=== PATIENT | female | born 1970 | race Caucasian/White ===

== ENCOUNTER 2016-10-12 17:40 | Emergency (ER) | payer BC ==
[~2016-10-12] VITALS: Ht 160 cm; Wt 89.3 kg
[~2016-10-12 17:40] MED LIST: GABA400C PO; LAMO150T32 PO; LEVOIUD INT UTER; PRENTAB PO; PRLSR20 PO
[2016-10-12 17:45] VITALS: TEMP 36.6; Ht 160 cm; Wt 89.3 kg
[2016-10-12] MEDS ORDERED: SODIUM CHLORIDE 0.9% 1000ML 1,000 ML IV STA (18:10)
[2016-10-12] MEDS ORDERED: ONDANSETRON 8 MG/54 ML D5W IV STA (18:14)
[2016-10-12] MEDS ORDERED: AMOXICILLIN/CLAVULANATE TAB 875 MG TAB PO ONE ×2 (18:15→20:30)
[2016-10-12] MEDS ORDERED: PRENTAB26 PO (18:35)
[2016-10-12] MEDS ORDERED: OMEP20CA9 PO (18:35)
[2016-10-12] MEDS ORDERED: NRN600 PO (18:35)
[2016-10-12 18:40] LABS: BASO % 0.1 %; BASO ABS # 0.01 K/uL (0-0.2); COMPLETE YES; EOS % 0.6 %; HEMATOCRIT 44.4 % (37-47); IG% 0.2 %; LYMPH % 11.6 %; LYMPH ABS # 1.24 K/uL (1.2-3.4); MEAN CELL VOLUME 98.9 fL (80-100); MEAN CORPUSCULAR HEMOGLOBIN 32.3 pg (25-34); MEAN CORPUSCULAR HGB CONC 32.7 g/dl (32-36); MEAN PLATELET VOLUME 10.3 fL (7.4-10.4); NEUT % 80.5 %; PLATELET COUNT 229 K/uL (130-400); RED BLOOD COUNT 4.49 M/uL (4.2-5.4); WHITE BLOOD COUNT 10.73 K/uL (4.8-10.8)
[2016-10-12 18:53] VITALS: O2SAT 98
[2016-10-12 18:57] LABS: ALT/SGPT 10 U/L (12-78); AST/SGOT 15 U/L (15-37); BLOOD UREA NITROGEN 8 mg/dl (7-18); BUN/CREATININE RATIO 9.5 (10-20); CALCIUM 8.6 mg/dl (8.5-10.1); CARBON DIOXIDE 29 mmol/L (21-32); CHLORIDE 110 mmol/L (98-107); CREATININE 0.88 mg/dl (0.60-1.20); GLUCOSE 89 mg/dl (70-99); POTASSIUM 3.8 mmol/L (3.5-5.1); SODIUM 144 mmol/L (136-145)
[2016-10-12 19:08] LABS: ALKALINE PHOSPHATASE 72 U/L (45-117)
--- NOTE | 2016-10-12 19:17 | DIAGNOSTIC IMAGING REPORT ---
RIGHT HAND 3 VIEWS CLINICAL HISTORY: Trauma. Dog bite injury. FINDINGS: 3 views of the right hand are obtained. No prior studies are available for comparison at the time of dictation. The skeletal structures are well mineralized. No fracture is seen. The joint spaces of the hand are well-maintained. A chronic avulsion injury of the ulnar styloid is suspected. A bone island is incidentally noted in the scaphoid. Mild soft tissue swelling is suggested on the ulnar aspect of the hand. Soft tissues swelling is also present around the wrist. No radiodense foreign body or subcutaneous gas is seen. IMPRESSION: Soft tissue swelling with no acute bony abnormality seen in the right hand. Electronically signed by: Mk Davila M.D. 10/12/2016 7:16 PM Dictated Date/Time: 10/12/2016 7:14 PM
[2016-10-12 20:16] LABS: PREG INTERNAL NEGATIVE QC NEG CLEAR BACKGROUND; PREG INTERNAL POSITIVE QC POS CONTROL LINE
[2016-10-12] MEDS ORDERED: ACETAMINOPHEN 500 MG TAB PO STA (20:18)
[2016-10-12] MEDS ORDERED: EMPTY 8 DRAM VIAL ONE (20:25)
[2016-10-12] MEDS ORDERED: AMOX875T PO (20:28)
[2016-10-12 20:44] VITALS: BP 143/75; PULSE 73; O2SAT 98
--- NOTE | 2016-10-13 01:24 | EMERGENCY ROOM VISIT NOTE ---
History Report prepared by Chema: Roxanne Albrecht Under the Supervision of: Dr. Jesse Molina M.D. First contact with patient: 18:06 Chief Complaint: BITE Stated Complaint: DOG BITE R HAND History of Present Illness The patient is a 46 year old female who presents to the Emergency Room with complaints of an episode of a dog bite to the right hand occurring 1 hour [employer]. The patient's two dogs were fighting and she reached down to try and separate them. Her dachshund bit her on her left thumb and then again on her right hand. Patient states that he was not intentionally trying to bite her, he was trying to bite the other dog. She has been unable to straighten the fingers of her right hand since the incident. She denies any pain. After the bite, the patient became nauseated, diaphoretic, lightheaded and passed out. She denies any injury occurring when she passed out. Her tetanus is up to date. The dogs are up to date on all of their vaccinations as well. The patient rates her pain as a 7/10 in severity. Pt denies headache, fevers, chills, neck pain, chest pain, breathing difficulties, vomiting, abdominal pain, back pain, melena, hematochezia, urinary symptoms, numbness, lymphadenopathy, rash, or other complaints. Source of History: patient Onset: 1 hour [employer] Position: hand (right) Symptom Intensity: 7/10 Timing: other (episode) Modifying Factors (Worsening): movement (of right hand) Associated Symptoms: + LOC, + diaphoresis, + nausea Review of Systems See HPI for pertinent positives and negatives. A total of ten systems were reviewed and were otherwise negative. Past Medical & Surgical Medical Problems: (1) Acute bronchitis, unspecified (2) (3) Endometriosis (4) Esophageal reflux (5) Tonsillectomy (6) Unspecified asthma (7) Urinary tract infection Family History Cardiovascular disease Kidney disease Social History Smoking Status: Never Smoker Marital Status: Housing Status: lives with family Occupation Status: employed Current/Historical Medications Scheduled Amoxicillin & Pot Clavulanate (Augmentin 875-125 mg), 875 MG PO BID Gabapentin (Gabapentin), 600 MG PO TID Lamotrigine (Lamictal), 150 MG PO BID Levonorgestrel (Iud) (Mirena), 20 MCG INT UTER UD Multivit/Min/Iron/Fol Ac/Pren ( Vitamin), 1 TAB PO DAILY Omeprazole (Prilosec), 20 MG PO BID Allergies Coded Allergies: Doxycycline (Verified Allergy, Severe, HIVES, 10/02/16) Telithromycin (Verified Allergy, Severe, HIVES, 10/02/16) Adhesives (Verified Allergy, Intermediate, SKIN WELTS, 10/02/16) Physical Exam Vital Signs Date Time Temp Pulse Resp B/P (MAP) Pulse Ox O2 Delivery O2 Flow Rate FiO2 10/12/16 20:44 73 18 143/75 98 10/12/16 19:19 78 18 141/80 100 Room Air 10/12/16 18:57 80 10/12/16 18:53 98 Room Air 10/12/16 18:42 80 111/73 94 140/86 81 141/80 10/12/16 17:45 36.6 93 18 122/69 99 Room Air Physical Exam GENERAL: Awake, alert, well-appearing, in no distress HENT: Normocephalic, atraumatic. Oropharynx unremarkable. EYES: Normal conjunctiva. Sclera non-icteric. NECK: Supple. No nuchal rigidity. FROM. No JVD. RESPIRATORY: Clear to auscultation. CARDIAC: Regular rate, normal rhythm. Extremities warm and well perfused. Pulses equal. ABDOMEN: Soft, non-distended. No tenderness to palpation. No rebound or guarding. No masses. RECTAL: Deferred. MUSCULOSKELETAL: Chest examination reveals no tenderness. No joint edema. UPPER EXTREMITIES: Small puncture wound to the hypothenar eminence on the lateral aspect of the right hand. Puncture wound between the 3rd and 4th metacarpals on the right hand. Small abrasion on the dorsal aspect of the left thumb. LOWER EXTREMITIES: Calves are equal size bilaterally and non-tender. No edema. No discoloration. NEURO: Normal sensorium. No sensory or motor deficits noted. SKIN: No rash or jaundice noted. Medical Decision & Procedures ER Provider Diagnostic Interpretation: Radiology results as stated below per my review and radiologist interpretation: RIGHT HAND 3 VIEWS CLINICAL HISTORY: Trauma. Dog bite injury. FINDINGS: 3 views of the right hand are obtained. No prior studies are available for comparison at the time of dictation. The skeletal structures are well mineralized. No fracture is seen. The joint spaces of the hand are well-maintained. A chronic avulsion injury of the ulnar styloid is suspected. A bone island is incidentally noted in the scaphoid. Mild soft tissue swelling is suggested on the ulnar aspect of the hand. Soft tissues swelling is also present around the wrist. No radiodense foreign body or subcutaneous gas is seen. IMPRESSION: Soft tissue swelling with no acute bony abnormality seen in the right hand. Electronically signed by: Mk Davila M.D. 10/12/2016 7:16 PM Dictated Date/Time: 10/12/2016 7:14 PM Laboratory Results 10/12/16 18:28 Red Blood Count 4.49, Mean Corpuscular Volume 98.9, Mean Corpuscular Hemoglobin 32.3, Mean Corpuscular Hemoglobin Concent 32.7, Mean Platelet Volume 10.3, Neutrophils (%) (Auto) 80.5, Lymphocytes (%) (Auto) 11.6, Monocytes (%) (Auto) 7.0, Eosinophils (%) (Auto) 0.6, Basophils (%) (Auto) 0.1, Neutrophils # (Auto) 8.65, Lymphocytes # (Auto) 1.24, Monocytes # (Auto) 0.75, Eosinophils # (Auto) 0.06, Basophils # (Auto) 0.01 10/12/16 18:28 Test 10/12/16 18:28 10/12/16 18:29 White Blood Count 10.73 K/uL (4.8-10.8) Red Blood Count 4.49 M/uL (4.2-5.4) Hemoglobin 14.5 g/dL (12.0-16.0) Hematocrit 44.4 % (37-47) Mean Corpuscular Volume 98.9 fL (80-100) Mean Corpuscular Hemoglobin 32.3 pg (25-34) Mean Corpuscular Hemoglobin Concent 32.7 g/dl (32-36) Platelet Count 229 K/uL (130-400) Mean Platelet Volume 10.3 fL (7.4-10.4) Neutrophils (%) (Auto) 80.5 % Lymphocytes (%) (Auto) 11.6 % Monocytes (%) (Auto) 7.0 % Eosinophils (%) (Auto) 0.6 % Basophils (%) (Auto) 0.1 % Neutrophils # (Auto) 8.65 K/uL (1.4-6.5) Lymphocytes # (Auto) 1.24 K/uL (1.2-3.4) Monocytes # (Auto) 0.75 K/uL (0.11-0.59) Eosinophils # (Auto) 0.06 K/uL (0-0.5) Basophils # (Auto) 0.01 K/uL (0-0.2) RDW Standard Deviation 46.9 fL (36.4-46.3) RDW Coefficient of Variation 12.9 % (11.5-14.5) Immature Granulocyte % (Auto) 0.2 % Immature Granulocyte # (Auto) 0.02 K/uL (0.00-0.02) Anion Gap 5.0 mmol/L (3-11) Est Creatinine Clear Calc Drug Dose 85.6 ml/min Estimated GFR () 92.0 Estimated GFR (Non- 79.3 BUN/Creatinine Ratio 9.5 (10-20) Calcium Level 8.6 mg/dl (8.5-10.1) Total Bilirubin 0.3 mg/dl (0.2-1) Direct Bilirubin < 0.1 mg/dl (0-0.2) Aspartate Amino Transf (AST/SGOT) 15 U/L (15-37) Alanine Aminotransferase (ALT/SGPT) 10 U/L (12-78) Alkaline Phosphatase 72 U/L (45-117) Total Protein 6.9 gm/dl (6.4-8.2) Albumin 3.8 gm/dl (3.4-5.0) Thyroid Stimulating Hormone (TSH) 2.510 uIu/ml (0.300-4.500) Human Chorionic Gonadotropin, Qual NEG (NEG) Bedside Glucose 88 mg/dl (70-90) Laboratory results reviewed by me. Medications Administered Medications (Trade) Dose Ordered Sig/Maulik Route Start Time Stop Time Status Last Admin Dose Admin Sodium Chloride 1,000 ml @ 999 mls/hr Q1H1M STAT IV 10/12/16 18:10 10/12/16 19:10 DC 10/12/16 18:10 999 MLS/HR Amoxicillin/ Clavulanate Potassium (Augmentin Tab) 875 mg ONE ONCE PO 10/12/16 18:15 10/12/16 18:16 DC 10/12/16 18:50 875 MG Amoxicillin/ Clavulanate Potassium (Augmentin Tab) 875 mg ONE ONCE PO 10/12/16 20:30 10/12/16 20:31 DC 10/12/16 20:28 875 MG Acetaminophen (Tylenol Tab) 1,000 mg NOW STAT PO 10/12/16 20:18 10/12/16 20:20 DC 10/12/16 20:28 1,000 MG ECG Indication: syncope Rate (beats per minute): 78 Rhythm: normal sinus Findings: no acute ischemic change, no ectopy ED Course 1805: The patient was evaluated in room B8. A complete history and physical exam was performed. 1809: NSS 1000 ml @ 999 mls/hr IV 1813: Zofran 8 mg IV 1814: Augmentin 875 mg PO 1919: I reassessed the patient and she is doing well. 2018: Tylenol tab 1000 mg PO 2023: I reassessed the patient at this time. She is feeling better and resting comfortably. I discussed the results and treatment plan with the patient. I answered all pertaining questions that she had. She expressed understanding and verbalized agreement. The patient will be discharged home. 2030: Augmentin Tab 875 mg PO Medical Decision Medication Reconciliation: I attest that I have personally reviewed the patient' s current medication list Blood pressure screening: Patient was found to have normal blood pressure on screening and does not require emergent follow-up. Prior records/ancillary studies reviewed. Triage Nursing notes reviewed and agree them. Additional history obtained from the family. The patient's history was concerning for syncope and a dog bite. Differential diagnosis: Etiologies such as vasovagal event, foreign body, neuropraxia, infection, hypoglycemia, electrolyte abnormalities, cardiac sources, intracerebral event, toxicologic, neurologic, as well as others were entertained. Physical examination: As above. The patient had 2 small puncture wounds. She was having difficulty with extension and flexion of her fingers. There is no obvious wounds or injury over the flexor tendon area. She also noted difficulty extending her index finger and there is no associated wound over the extensor tendon distribution. ER treatment provided: IV hydration with normal saline Oral Augmentin IV Zofran On reassessment the patient felt better. Diagnostics interpretation by me: ECG: Normal The labs revealed unremarkable CBC and chemistry panel Imaging studies: X-rays as above The patient had a vasovagal syncopal event. She suffered a dog bite from her own animal. She was treated with Augmentin and will be prophylaxed for the next 5 days. The patient declined analgesia. Conservative management was discussed. The patient and were in agreement. I gave my usual and customary discussion regarding this issue. By the evaluation outlined above emergent etiologies such as infection, hypoglycemia, electrolyte abnormalities, cardiac sources, intracerebral event, toxicologic, neurologic,as well as others were deemed relatively unlikely. The patient and were informed about the findings as listed above. All questions were answered and they were pleased with the treatment. Return instructions were outlined and the patient was discharged in stable condition. Outpatient prescription management: Augmentin Referral: The patient was referred back to her primary care physician for follow-up in 2 to 3 days for a recheck of the current condition. The chart was completed utilizing [employer] Speech voice recognition software. Grammatical errors, random word insertions, pronoun errors, and incomplete sentences are an occasional consequence of this system due to software limitations, ambient noise, and hardware issues. Any formal questions or concerns about the content, text, or information contained within the body of this dictation should be directly addressed to the physician for clarification. Impression Primary Impression: Dog bite Additional Impression: Vasovagal syncope Scribe Attestation The scribe's documentation has been prepared under my direction and personally reviewed by me in its entirety. I confirm that the note above accurately reflects all work, treatment, procedures, and medical decision making performed by me. Departure Information Dispostion Home / Self-Care Prescriptions Amoxicillin & Pot Clavulanate (Augmentin 875-125 mg) 1 Tab Tab 875 MG PO BID, #8 TAB Prov: Jesse Molina MD 10/12/16 Referrals Jayjay Rodriguez M.D. (PCP) Forms HOME CARE DOCUMENTATION FORM, IMPORTANT VISIT INFORMATION Patient Instructions ED Bite Dog, ED Syncope Vasovagal, My [facility] Additional Instructions Amoxicillin Clavulanate (Augmentin) 875mg: Take one pill twice daily for 5 days for your bite. All antibiotics can cause diarrhea. If this occurs and you feel worse or it does not resolve in 1-2 days follow up with your doctor or return to the Emergency Department as this could be signs of serious underlying problems. Any medication can cause an allergic reaction, stop the pills immediately and return to the ER for rash, hives, breathing difficulties, or swelling. Ibuprofen(Motrin, Advil) may be used for fever or pain. Use 600mg every six hours as needed. Take with food. Avoid using more than 2400mg in a 24 hour period. Do not use 2400mg per day for more than three consecutive days without physician direction. Prolonged inappropriate use can lead to stomach upset or ulcers. (AND/OR) Acetaminophen(Tylenol) may be used for fever or pain. Use 1000mg every six hours as needed. Avoid using more than 4000mg in a 24 hour period. Warm compresses to the affected area 4 times daily for 15-20 minutes. Rest and drink plenty of fluids. Continue current medications. Return to the ER for severe pain, persistent fevers, spreading redness, or any worsening of your condition. Follow up with your primary physician within 2-3 days for a recheck of the current condition. Problem Qualifiers Primary Impression: Dog bite Encounter type: initial encounter Qualified Codes: W54.0XXA - Bitten by dog , initial encounter
[2016-10-18] MEDS ORDERED: AMOX875T PO (17:26)
[2016-10-18] MEDS ORDERED: MTR600X PO (17:36)
[2017-04-16] MEDS ORDERED: OMEP20CA9 PO (14:57)
[2017-04-16] MEDS ORDERED: MULT-506 PO (14:57)
[2017-04-16] MEDS ORDERED: GABA600T PO (14:57)
[2017-04-16] MEDS ORDERED: PRENTAB26 PO (14:57)
[2017-04-16] MEDS ORDERED: LMC/150 PO (14:57)
[2017-04-17] MEDS ORDERED: HYDR-5688 PO (08:40)
== END 2016-10-12 20:46 | disposition home or self-care (01) ==
LOC: C.EDB 17:42
DX: R55 Syncope and collapse (principal); W54.0XXA Bitten by dog, initial encounter

== ENCOUNTER 2016-10-14 08:48 | Inpatient (IN) | payer BC ==
[~2016-10-14] VITALS: Ht 160 cm; Wt 89.0 kg
[~2016-10-14 08:48] MED LIST changes: +AMOX875T PO; -GABA400C PO; +NRN600 PO; +OMEP20CA9 PO; -PRENTAB PO; +PRENTAB26 PO; -PRLSR20 PO
[2016-10-14] MEDS ORDERED: KETOROLAC TROMETHAMINE 30 MG/ML VIAL IV STA (09:07)
[2016-10-14] MEDS ORDERED: SODIUM CHLORIDE 0.9% 1000ML 1,000 ML IV STA (09:07)
[2016-10-14] MEDS ORDERED: AMPICILLIN/SULBACTAM SOD INJ 3,000 MG in SODIUM CHLORIDE 0.9% 100ML 100 ML IV STA (09:07)
--- NOTE | 2016-10-14 09:15 | EMERGENCY ROOM VISIT NOTE ---
History First contact with patient: 08:55 Chief Complaint: SWELLING TO EXTREMITY Stated Complaint: SWELLING AND REDNESS TO RT HAND History of Present Illness The patient is a 46 year old female who presents to the Emergency Room via private vehicle accompanied by male with complaints of "swelling and redness to right hand". The patient states that she was seen here Friday following a dog bite to the right dorsal distal hand. This was overlying the knuckles. She states that her dogs were fighting, therefore she was accidentally bitten on the hand. Her tetanus is up-to-date. The dog's vaccinations are up-to- date. She was discharged home Friday night with Augmentin of which she took a dose then, 2 doses on Friday and a dose this morning around 7:30 AM. She is here today concerned because the bite now is erythematous to point where the dorsal aspect extending up the forearm is red as well as above the right elbow. She rates the pain as a 10/10. There are associated chills. She denies any fever. She feels as though her wrist and forearm area now have a grinding sensation/cracking sensation when she flexes and extends at the right wrist. She is not on any immunocompromising medications. She is notimmunocompromised. Review of Systems A complete 10-point Review of Systems was discussed with the patient, with pertinent positives and negatives listed in the History of Present Illness. All remaining Review of Systems questions can be considered negative unless otherwise specified. Past Medical/Surgical History Medical Problems: (1) Acute bronchitis, unspecified (2) (3) Cellulitis (4) Endometriosis (5) Esophageal reflux (6) Tonsillectomy (7) Unspecified asthma (8) Urinary tract infection Family History Cardiovascular disease Kidney disease Social History Smoking Status: Current Every Day Smoker Marital Status: Housing Status: lives with family Occupation Status: employed Current/Historical Medications Scheduled Amoxicillin & Pot Clavulanate (Augmentin 875-125 mg), 875 MG PO BID Gabapentin (Gabapentin), 600 MG PO TID Lamotrigine (Lamictal), 150 MG PO BID Levonorgestrel (Iud) (Mirena), 20 MCG INT UTER UD Multivit/Min/Iron/Fol Ac/Pren ( Vitamin), 1 TAB PO DAILY Omeprazole (Prilosec), 20 MG PO BID Allergies Coded Allergies: Doxycycline (Verified Allergy, Severe, HIVES, 10/14/16) Telithromycin (Verified Allergy, Severe, HIVES, 10/14/16) Adhesives (Verified Allergy, Intermediate, SKIN WELTS, 10/14/16) Physical Exam Vital Signs Date Time Temp Pulse Resp B/P (MAP) Pulse Ox O2 Delivery O2 Flow Rate FiO2 10/14/16 10:30 69 22 127/67 94 Room Air 10/14/16 08:50 37.0 92 20 137/70 99 Room Air Physical Exam VITAL SIGNS - Vital signs and nursing notes were reviewed. Patient is afebrile , normotensive, non-tachycardic and is saturating well on room air 99%. GENERAL -46-year-old female appearing her stated age who is in no acute distress. Communicates well with provider and answers questions appropriately. SKIN - there is diffuse erythema and edema on the dorsal aspect of the right hand from the MCP joints extending to the midforearm. There is also then redness extending from the right elbow up to the right shoulder. This is on the lateral aspect of the right arm. The arm edema and erythema progressively worsened and severely worsened this morning. EXTREMITIES - No clubbing or peripheral cyanosis. No pretibial edema present. There is tenderness to palpation overlying the dorsal aspect of the right wrist. There is minimal range of motion of this region secondary to pain. The ring finger on the right hand is limited in range of motion. Other digits unremarkable. There is no drainage. No fluctuant abscess. +5/5 strength noted in UE/LE bilaterally. Medical Decision & Procedures ER Provider Diagnostic Interpretation: RIGHT FOREARM 2 VIEWS ROUTINE CLINICAL HISTORY: Right hand dog bite, now erythematous, edematous. COMPARISON: None FINDINGS: Alignment of the right elbow is anatomic. There is no acute fracture of the right radius or ulna. A well-corticated ossicle along the ulnar styloid suggests old injury. No soft tissue gas within the right forearm is noted. There is dorsal soft tissue swelling of the right wrist and hand. IMPRESSION: 1. No acute fracture of the right radius or ulna. 2. Dorsal soft tissue tissue swelling of the dorsal right wrist and hand. Electronically signed by: Michele Hidalgo M.D. 10/14/2016 10:38 AM Dictated Date/Time: 10/14/2016 10:37 AM RIGHT HAND MIN 3 VIEWS ROUTINE CLINICAL HISTORY: Right hand dog bite, now erythematous, edematous. COMPARISON: Right hand radiographs October 12, 2016. FINDINGS: A well-corticated ossicle along the ulnar styloid suggests old injury. Dorsal soft tissue swelling of the right hand and wrist has increased since exam of October 12, 2016. No acute fracture is identified. No radiopaque foreign body. There is no soft tissue gas or evidence of osteomyelitis. IMPRESSION: 1. No acute fracture or evidence of osteomyelitis within the right hand. 2. Increase in dorsal right hand and wrist soft tissue swelling. Electronically signed by: Michele Hidalgo M.D. 10/14/2016 10:40 AM Dictated Date/Time: 10/14/2016 10:39 AM Laboratory Results 10/14/16 09:30 Red Blood Count 4.78, Mean Corpuscular Volume 99.0, Mean Corpuscular Hemoglobin 30.8, Mean Corpuscular Hemoglobin Concent 31.1, Mean Platelet Volume 10.1, Neutrophils (%) (Auto) 73.5, Lymphocytes (%) (Auto) 16.0, Monocytes (%) (Auto) 9.8, Eosinophils (%) (Auto) 0.4, Basophils (%) (Auto) 0.1, Neutrophils # (Auto) 7.16, Lymphocytes # (Auto) 1.56, Monocytes # (Auto) 0.96, Eosinophils # (Auto) 0.04, Basophils # (Auto) 0.01 10/14/16 09:30 Test 10/14/16 09:30 10/14/16 09:41 White Blood Count 9.75 K/uL (4.8-10.8) Red Blood Count 4.78 M/uL (4.2-5.4) Hemoglobin 14.7 g/dL (12.0-16.0) Hematocrit 47.3 % (37-47) Mean Corpuscular Volume 99.0 fL (80-100) Mean Corpuscular Hemoglobin 30.8 pg (25-34) Mean Corpuscular Hemoglobin Concent 31.1 g/dl (32-36) Platelet Count 250 K/uL (130-400) Mean Platelet Volume 10.1 fL (7.4-10.4) Neutrophils (%) (Auto) 73.5 % Lymphocytes (%) (Auto) 16.0 % Monocytes (%) (Auto) 9.8 % Eosinophils (%) (Auto) 0.4 % Basophils (%) (Auto) 0.1 % Neutrophils # (Auto) 7.16 K/uL (1.4-6.5) Lymphocytes # (Auto) 1.56 K/uL (1.2-3.4) Monocytes # (Auto) 0.96 K/uL (0.11-0.59) Eosinophils # (Auto) 0.04 K/uL (0-0.5) Basophils # (Auto) 0.01 K/uL (0-0.2) RDW Standard Deviation 46.8 fL (36.4-46.3) RDW Coefficient of Variation 12.9 % (11.5-14.5) Immature Granulocyte % (Auto) 0.2 % Immature Granulocyte # (Auto) 0.02 K/uL (0.00-0.02) Anion Gap 6.0 mmol/L (3-11) Est Creatinine Clear Calc Drug Dose 144.8 ml/min Estimated GFR () 133.7 Estimated GFR (Non- 115.4 BUN/Creatinine Ratio 9.2 (10-20) Calcium Level 9.0 mg/dl (8.5-10.1) Total Bilirubin 0.8 mg/dl (0.2-1) Aspartate Amino Transf (AST/SGOT) 8 U/L (15-37) Alanine Aminotransferase (ALT/SGPT) 10 U/L (12-78) Alkaline Phosphatase 84 U/L (45-117) Total Protein 7.9 gm/dl (6.4-8.2) Albumin 4.2 gm/dl (3.4-5.0) Globulin 3.7 gm/dl (2.5-4.0) Albumin/Globulin Ratio 1.1 (0.9-2) Human Chorionic Gonadotropin, Qual NEG (NEG) Bedside Lactic Acid Venous 0.87 mmol/L (0.90-1.70) Medications Administered Medications (Trade) Dose Ordered Sig/Maulik Route Start Time Stop Time Status Last Admin Dose Admin Sodium Chloride 1,000 ml @ 999 mls/hr Q1H1M STAT IV 10/14/16 09:07 10/14/16 10:07 DC 10/14/16 09:45 999 MLS/HR Ampicillin Sodium/ Sulbactam Sodium 3000 mg/Sodium Chloride 108 ml @ 200 mls/hr NOW STAT IV 10/14/16 09:07 10/14/16 09:39 DC 10/14/16 10:31 200 MLS/HR Ketorolac Tromethamine (Toradol Inj) 30 mg NOW STAT IV 10/14/16 09:07 10/14/16 09:12 DC 10/14/16 09:45 30 MG Medical Decision Patient was seen and evaluated as above. After obtaining a thorough history and physical examination IV access was initiated and the above workup was performed. She was provided 3 g of Unasyn after counseling pharmacy to identify this would be appropriate given that she had ingested Augmentin this morning around 7:30. It was decided that this would be okay. She was also given Toradol for her pain. Blood cultures were drawn, and laboratory work was also obtained. No leukocytosis. APTT was elongated. Chemistry studies reveal potassium low at 3.4, BUN low at 5, creatinine low at 5.2, point care lactic 0.7 , AST and ALTs are diminished. Negative test. Radiographs were obtained to rule out fracture/potential ostial myelitis. These were negative. This time the patient has appeared to fail outpatient management. Antibiotics, and now has erythema extending from the hand, to the distal forearm as well as from the elbow up to the shoulder. There is concerning for worsening infection , therefore do believe that inpatient management is appropriate. I did speak with the inpatient hospitalist regarding the patient management. Please refer to further documentation regarding her stay. In evaluation treatment this patient following differential diagnoses were entertained: Sepsis, increasing cellulitis, fracture, retained foreign body, osteomyelitis, among others. Impression Primary Impression: Dog bite of right hand with infection Departure Information Dispostion Admitted as an inpatient Condition FAIR Referrals Jayjay Rodriguez M.D. (PCP) Patient Instructions My [facility]
[2016-10-14 09:56] LABS: BASO % 0.1 %; BASO ABS # 0.01 K/uL (0-0.2); COMPLETE YES; EOS % 0.4 %; HEMATOCRIT 47.3 % (37-47); IG% 0.2 %; LYMPH ABS # 1.56 K/uL (1.2-3.4); MEAN CORPUSCULAR HEMOGLOBIN 30.8 pg (25-34); MEAN CORPUSCULAR HGB CONC 31.1 g/dl (32-36); MEAN PLATELET VOLUME 10.1 fL (7.4-10.4); MONO % 9.8 %; NEUT % 73.5 %; PLATELET COUNT 250 K/uL (130-400); RED BLOOD COUNT 4.78 M/uL (4.2-5.4); WHITE BLOOD COUNT 9.75 K/uL (4.8-10.8)
[2016-10-14 10:13] LABS: PREG INTERNAL NEGATIVE QC NEG CLEAR BACKGROUND; PREG INTERNAL POSITIVE QC POS CONTROL LINE
[2016-10-14 10:27] LABS: ALB/GLOB RATIO 1.1 (0.9-2); BUN/CREATININE RATIO 9.2 (10-20); CREATININE 0.52 mg/dl (0.60-1.20); POTASSIUM 3.4 mmol/L (3.5-5.1)
--- NOTE | 2016-10-14 10:40 | DIAGNOSTIC IMAGING REPORT ---
RIGHT FOREARM 2 VIEWS ROUTINE CLINICAL HISTORY: Right hand dog bite, now erythematous, edematous. COMPARISON: None FINDINGS: Alignment of the right elbow is anatomic. There is no acute fracture of the right radius or ulna. A well-corticated ossicle along the ulnar styloid suggests old injury. No soft tissue gas within the right forearm is noted. There is dorsal soft tissue swelling of the right wrist and hand. IMPRESSION: 1. No acute fracture of the right radius or ulna. 2. Dorsal soft tissue tissue swelling of the dorsal right wrist and hand. Electronically signed by: Michele Hidalgo M.D. 10/14/2016 10:38 AM Dictated Date/Time: 10/14/2016 10:37 AM
--- NOTE | 2016-10-14 10:41 | DIAGNOSTIC IMAGING REPORT ---
RIGHT HAND MIN 3 VIEWS ROUTINE CLINICAL HISTORY: Right hand dog bite, now erythematous, edematous. COMPARISON: Right hand radiographs October 12, 2016. FINDINGS: A well-corticated ossicle along the ulnar styloid suggests old injury. Dorsal soft tissue swelling of the right hand and wrist has increased since exam of October 12, 2016. No acute fracture is identified. No radiopaque foreign body. There is no soft tissue gas or evidence of osteomyelitis. IMPRESSION: 1. No acute fracture or evidence of osteomyelitis within the right hand. 2. Increase in dorsal right hand and wrist soft tissue swelling. Electronically signed by: Michele Hidalgo M.D. 10/14/2016 10:40 AM Dictated Date/Time: 10/14/2016 10:39 AM
[2016-10-14 12:09] VITALS: O2SAT 94; Ht 160 cm; Wt 89.0 kg
[2016-10-14] MEDS ORDERED: POTASSIUM CHLORIDE 20 MEQ TABCR PO ONE (12:30)
[2016-10-14 12:45] VITALS: BP 129/84; PULSE 73; TEMP 37; O2SAT 97
--- NOTE | 2016-10-14 13:05 | History and Physical ---
History & Physical Date & Time of Service: Oct 14, 2016 at 12:15 Chief Complaint: Swelling And Redness To Rt Hand Primary Care Physician: Jayjay Rodriguez M.D. History of Present Illness Source: patient, partner, clinic records, hospital records 46 year old female who presents to the Emergency Room with complaints of swelling and redness to right hand. Pt was in the ER Friday after she had a dog bite. she was discharged on Augmentin. Pt said that her dogs were fighting and she tried to grab the little dog and she was accidentally bitten by the other dog on her dorsal area of her right hand and in one finger in the left hand. After getting bitten, she became nauseated, diaphoretic, lightheaded and passed out. She denies any injury occurring when she passed out. Her tetanus vaccin is up to date. The dogs are up to date with the vaccinations as well. She is back in the ER today because the right hand is erythematous and swelling with increase pain. She said that the redness is spreading almost to her elbow area, she is unable to flex and extend the wrist and the fingers. The dorsal and the palm area of the the right hand are very tender to touch. she said that she feels a grinding sensation when she tried to move the right wrist. she said that the pain is 10/10 and associated with chills. She denies any fever, chest pain, palpitation and sob. Past Medical/Surgical History Medical Problems: (1) Acute bronchitis, unspecified Status: Resolved (2) Status: Resolved (3) Endometriosis Status: Chronic (4) Esophageal reflux Status: Chronic (5) Tonsillectomy Status: Resolved (6) Unspecified asthma Status: Chronic (7) Urinary tract infection Status: Resolved Family History Cardiovascular disease Kidney disease Social History Smoking Status: Current Every Day Smoker Drug Use: none Marital Status: Occupational Status: employed Immunizations History of Influenza Vaccine: No History of Tetanus Vaccine?: Yes History of Pneumococcal: Yes History of Hepatitis B Vaccine: No Multi-Drug Resistant Organisms History of MDRO: No Allergies Coded Allergies: Doxycycline (Verified Allergy, Severe, HIVES, 10/14/16) Telithromycin (Verified Allergy, Severe, HIVES, 10/14/16) Adhesives (Verified Allergy, Intermediate, SKIN WELTS, 6/5/17) Home Medications Scheduled Amoxicillin & Pot Clavulanate (Augmentin 875-125 mg), 875 MG PO BID Gabapentin (Gabapentin), 600 MG PO TID Lamotrigine (Lamictal), 150 MG PO BID Levonorgestrel (Iud) (Mirena), 20 MCG INT UTER UD Multivit/Min/Iron/Fol Ac/Pren ( Vitamin), 1 TAB PO DAILY Omeprazole (Prilosec), 20 MG PO BID Review of Systems Constitutional: + chills, No fever Eyes: No eye pain, No redness ENT: No hearing loss, No unusual epistaxis, No nasal symptoms Respiratory: No cough, No sputum, No wheezing, No shortness of breath, No dyspnea at rest Cardiovascular: No chest pain, No orthopnea, No edema, No claudication Abdomen: No pain, No nausea, No vomiting, No diarrhea Musculoskeletal: No joint pain, No calf pain Genitourinary - Female: No dysuria, No urinary frequency, No urinary urgency Neurologic: No paralysis, No weakness Psychiatric: No substance abuse Endocrine: No fatigue Hematologic / Lymphatic: No clotting problems, No night sweats Integumentary: No rash, No itch Physical Exam Vital Signs Date Time Temp Pulse Resp B/P (MAP) Pulse Ox O2 Delivery O2 Flow Rate FiO2 10/14/16 10:30 69 22 127/67 94 Room Air 10/14/16 08:50 37.0 92 20 137/70 99 Room Air General Appearance: WD/WN, no apparent distress Head: normocephalic, atraumatic Eyes: PERRL, EOMI ENT: normal ENT inspection, hearing grossly normal Neck: supple, no JVD Respiratory/Chest: chest non-tender, lungs clear, normal breath sounds, no respiratory distress, no accessory muscle use Cardiovascular: regular rate, rhythm, no JVD Abdomen/GI: normal bowel sounds, non tender, soft Back: normal inspection, no CVA tenderness Extremities/Musculoskelatal: no calf tenderness, + pertinent finding (swelling , tenderness and erythema in the right hand more prominent in the dorsal area of the hand. Small puncture wound to the hypothenar eminence on the lateral aspect of the right hand. Puncture wound between the 3rd and 4th metacarpals on the dorsal area of the right hand. Small abrasion on the dorsal aspect of the left thumb. ) Neurologic/Psych: no motor/sensory deficits, alert, normal mood/affect, oriented x 3 Skin: warm/dry (right hand redness), no rash Lymphatic: no adenopathy Diagnostics Laboratory Results Results Past 24 Hours Test 10/14/16 09:30 10/14/16 09:41 Range/Units White Blood Count 9.75 4.8-10.8 K/uL Red Blood Count 4.78 4.2-5.4 M/uL Hemoglobin 14.7 12.0-16.0 g/dL Hematocrit 47.3 37-47 % Mean Corpuscular Volume 99.0 80-100 fL Mean Corpuscular Hemoglobin 30.8 25-34 pg Mean Corpuscular Hemoglobin Concent 31.1 32-36 g/dl Platelet Count 250 130-400 K/uL Mean Platelet Volume 10.1 7.4-10.4 fL Neutrophils (%) (Auto) 73.5 % Lymphocytes (%) (Auto) 16.0 % Monocytes (%) (Auto) 9.8 % Eosinophils (%) (Auto) 0.4 % Basophils (%) (Auto) 0.1 % Neutrophils # (Auto) 7.16 1.4-6.5 K/uL Lymphocytes # (Auto) 1.56 1.2-3.4 K/uL Monocytes # (Auto) 0.96 0.11-0.59 K/uL Eosinophils # (Auto) 0.04 0-0.5 K/uL Basophils # (Auto) 0.01 0-0.2 K/uL RDW Standard Deviation 46.8 36.4-46.3 fL RDW Coefficient of Variation 12.9 11.5-14.5 % Immature Granulocyte % (Auto) 0.2 % Immature Granulocyte # (Auto) 0.02 0.00-0.02 K/uL Sodium Level 143 136-145 mmol/L Potassium Level 3.4 3.5-5.1 mmol/L Chloride Level 107 98-107 mmol/L Carbon Dioxide Level 30 21-32 mmol/L Anion Gap 6.0 3-11 mmol/L Blood Urea Nitrogen 5 7-18 mg/dl Creatinine 0.52 0.60-1.20 mg/dl Est Creatinine Clear Calc Drug Dose 144.8 ml/min Estimated GFR () 133.7 Estimated GFR (Non- 115.4 BUN/Creatinine Ratio 9.2 10-20 Random Glucose 81 70-99 mg/dl Calcium Level 9.0 8.5-10.1 mg/dl Total Bilirubin 0.8 0.2-1 mg/dl Aspartate Amino Transf (AST/SGOT) 8 15-37 U/L Alanine Aminotransferase (ALT/SGPT) 10 12-78 U/L Alkaline Phosphatase 84 45-117 U/L Total Protein 7.9 6.4-8.2 gm/dl Albumin 4.2 3.4-5.0 gm/dl Globulin 3.7 2.5-4.0 gm/dl Albumin/Globulin Ratio 1.1 0.9-2 Human Chorionic Gonadotropin, Qual NEG NEG Bedside Lactic Acid Venous 0.87 0.90-1.70 mmol/L Microbiology Results 10/14/16 Blood Culture, Received Pending 10/14/16 Blood Culture, Received Pending Diagnostic Radiology RIGHT FOREARM 2 VIEWS ROUTINE CLINICAL HISTORY: Right hand dog bite, now erythematous, edematous. COMPARISON: None FINDINGS: Alignment of the right elbow is anatomic. There is no acute fracture of the right radius or ulna. A well-corticated ossicle along the ulnar styloid suggests old injury. No soft tissue gas within the right forearm is noted. There is dorsal soft tissue swelling of the right wrist and hand. IMPRESSION: 1. No acute fracture of the right radius or ulna. 2. Dorsal soft tissue tissue swelling of the dorsal right wrist and hand. Electronically signed by: Michele Hidalgo M.D. 10/14/2016 10:38 AM Dictated Date/Time: 10/14/2016 10:37 AM RIGHT HAND MIN 3 VIEWS ROUTINE CLINICAL HISTORY: Right hand dog bite, now erythematous, edematous. COMPARISON: Right hand radiographs October 12, 2016. FINDINGS: A well-corticated ossicle along the ulnar styloid suggests old injury. Dorsal soft tissue swelling of the right hand and wrist has increased since exam of October 12, 2016. No acute fracture is identified. No radiopaque foreign body. There is no soft tissue gas or evidence of osteomyelitis. IMPRESSION: 1. No acute fracture or evidence of osteomyelitis within the right hand. 2. Increase in dorsal right hand and wrist soft tissue swelling. Electronically signed by: Michele Hidalgo M.D. 10/14/2016 10:40 AM Dictated Date/Time: 10/14/2016 10:39 AM Impression Assessment and Plan Right Hand Cellulitis Failed outpatient treatment with Augmentin for dog bite Afebrile and no leukocytosis Received Unasyn in the ER Blood cx collected Will continue IV Unasyn q6hr monitor CBC pain control with tramadol Hypokalemia Potassium replaced Monitor BMP Bipolar disorder Continue Lamictal Stable Tobacco abuse Counseling on smoking cessation GERD Continue PPI DVT px on Lovenox subq CODE STATUS FULL CODE Level of Care Med/Surg Resuscitation Status FULL RESUSCITATION VTE Prophylaxis VTE Risk Assessment Done? Y/N: Yes Risk Level: Low Given or contraindicated: Enoxaparin (Lovenox)SQ Additional Copies To Jayjay Rodriguez M.D.
[2016-10-14] MEDS: GABAPENTIN 600 MG TAB PO SCH ×2 (13:42→21:43)
[2016-10-14] MEDS: TRAMADOL HCL 50 MG TAB PO PRN (13:43)
[2016-10-14 14:56] LABS: PARTIAL THROMBOPLASTIN RATIO 1.2; PROTHROMBIN TIME (PATIENT) 10.2 SECONDS (9.0-12.0)
[2016-10-14] MEDS ORDERED: ENOXAPARIN 40 MG/0.4 ML SYR SQ ONE (15:15)
[2016-10-14 15:30] VITALS: BP 111/73; PULSE 76; TEMP 37.1; O2SAT 97
[2016-10-14 16:25] VITALS: O2SAT 97
[2016-10-14] MEDS: AMPICILLIN/SULBACTAM SOD INJ 3,000 MG in SODIUM CHLORIDE 0.9% 100ML 100 ML IV SCH ×2 (16:43→21:44)
[2016-10-14] MEDS: ACETAMINOPHEN 325 MG TAB PO PRN (19:28)
[2016-10-14] MEDS ORDERED: KETOROLAC TROMETHAMINE 30 MG/ML VIAL IV ONE (21:21)
[2016-10-14] MEDS ORDERED: MoRPHine SULFATE 4 MG/ML 1 ML CARP\\VIAL IV PRN (21:30)
[2016-10-14] MEDS: PANTOprazole SOD 40 MG TAB PO SCH (21:43)
[2016-10-14 23:46] VITALS: BP 130/76; PULSE 85; TEMP 36.8; O2SAT 97
[2016-10-15] MEDS: TRAMADOL HCL 50 MG TAB PO PRN ×2 (00:47→18:12)
[2016-10-15] MEDS: AMPICILLIN/SULBACTAM SOD INJ 3,000 MG in SODIUM CHLORIDE 0.9% 100ML 100 ML IV SCH ×4 (04:15→21:43)
[2016-10-15] MEDS: KETOROLAC TROMETHAMINE 30 MG/ML VIAL IV PRN ×2 (04:17→10:50)
[2016-10-15 07:30] VITALS: BP 123/84; PULSE 63; TEMP 36.9; O2SAT 98
[2016-10-15 08:00] VITALS: O2SAT 98
[2016-10-15] MEDS: GABAPENTIN 600 MG TAB PO SCH ×3 (08:12→21:42)
[2016-10-15] MEDS: PANTOprazole SOD 40 MG TAB PO SCH ×2 (08:12→21:42)
[2016-10-15] MEDS: IBUPROFEN 200 MG TAB PO PRN (08:13)
[2016-10-15 09:17] LABS: HEMATOCRIT 37.4 % (37-47); MEAN CELL VOLUME 99.5 fL (80-100); MEAN CORPUSCULAR HEMOGLOBIN 32.4 pg (25-34); MEAN CORPUSCULAR HGB CONC 32.6 g/dl (32-36); MEAN PLATELET VOLUME 10.1 fL (7.4-10.4); PLATELET COUNT 184 K/uL (130-400); RED BLOOD COUNT 3.76 M/uL (4.2-5.4); WHITE BLOOD COUNT 6.99 K/uL (4.8-10.8)
[2016-10-15 09:43] LABS: CALCIUM 8.4 mg/dl (8.5-10.1); CREATININE 0.5 mg/dl (0.60-1.20); MAGNESIUM 2.1 mg/dl (1.8-2.4); POTASSIUM 3.8 mmol/L (3.5-5.1)
--- NOTE | 2016-10-15 10:49 | Progress Note ---
Medicine Progress Note Date & Time of Visit: Oct 15, 2016 at 10:38. Subjective Pt was seen and examined Lying in bed with no distress with at bedside Pt said that the redness and swelling in the right hand seems to improve a little she said that now she is able to move her fingers she denies any chest pain, palpitation, fever and sob Objective Last 8 Hrs Date Time Temp Pulse Resp B/P (MAP) Pulse Ox O2 Delivery O2 Flow Rate FiO2 10/15/16 07:30 36.9 63 16 123/84 (97) 98 Room Air Physical Exam: General- No acute distress Head- atraumatic Eyes- PERRL, EOMI ENT- oropharynx clear Neck- supple, no JVD Lungs- clear to auscultation, No wheezing Heart- regular rhythm; no murmur Abdomen- normal bowel sounds, soft Extremities- no calf tenderness, +swelling, +tenderness and +erythema in dorsal area of the R hand. Small puncture wound to the hypothenar eminence on the lateral aspect of the right hand. Puncture wound in the dorsal area of the right hand and Small abrasion on the dorsal aspect of the left thumb. ) Neuro- alert, oriented x 3; PERRL, EOMI; no facial palsy; no dysarthria Skin- warm & dry Laboratory Results: Last 24 Hours Test 10/14/16 13:58 10/15/16 09:03 Prothrombin Time 10.2 SECONDS Prothromb Time International Ratio 1.0 Activated Partial Thromboplast Time 32.3 SECONDS Partial Thromboplastin Ratio 1.2 White Blood Count 6.99 K/uL Red Blood Count 3.76 M/uL Hemoglobin 12.2 g/dL Hematocrit 37.4 % Mean Corpuscular Volume 99.5 fL Mean Corpuscular Hemoglobin 32.4 pg Mean Corpuscular Hemoglobin Concent 32.6 g/dl RDW Standard Deviation 47.6 fL RDW Coefficient of Variation 13.0 % Platelet Count 184 K/uL Mean Platelet Volume 10.1 fL Sodium Level 143 mmol/L Potassium Level 3.8 mmol/L Chloride Level 110 mmol/L Carbon Dioxide Level 30 mmol/L Anion Gap 3.0 mmol/L Blood Urea Nitrogen 6 mg/dl Creatinine 0.50 mg/dl Est Creatinine Clear Calc Drug Dose 150.3 ml/min Estimated GFR () 135.5 Estimated GFR (Non- 116.9 BUN/Creatinine Ratio 11.0 Random Glucose 106 mg/dl Calcium Level 8.4 mg/dl Magnesium Level 2.1 mg/dl Assessment & Plan Right Hand Cellulitis Failed outpatient treatment with Augmentin for dog bite Afebrile and no leukocytosis Received Unasyn in the ER Blood cx Pending Continue IV Unasyn q6hr Continue monitor CBC pain control with tramadol and Toradol Hypokalemia stable Monitor BMP Bipolar disorder Continue Lamictal Stable Tobacco abuse Counseling on smoking cessation GERD Continue PPI DVT px on Lovenox subq CODE STATUS FULL CODE Current Inpatient Medications: Current Inpatient Medications Medications (Trade) Dose Ordered Sig/Maulik Route Start Time Stop Time Status Last Admin Dose Admin Enoxaparin Sodium (Lovenox Inj) 40 mg Q24H SQ 10/14/16 12:15 11/13/16 12:14 Future hold Acetaminophen (Tylenol Tab) 650 mg Q6 PRN PO 10/14/16 12:15 11/13/16 12:14 10/14/16 19:28 650 MG Tramadol HCl (Ultram Tab) 50 mg Q8 PRN PO 10/14/16 12:30 11/13/16 12:29 10/15/16 00:47 50 MG Gabapentin (Neurontin Tab) 600 mg TID PO 10/14/16 14:00 11/13/16 13:59 10/15/16 08:12 600 MG Lamotrigine (Lamictal Tab) 150 mg BID PO 10/14/16 21:00 11/13/16 20:59 10/15/16 08:11 150 MG Pantoprazole Sodium (Protonix Tab) 40 mg BID PO 10/14/16 21:00 11/13/16 20:59 10/15/16 08:12 40 MG Ampicillin Sodium/ Sulbactam Sodium 3000 mg/Sodium Chloride 108 ml @ 200 mls/hr Q6H IV 10/14/16 16:00 10/24/16 09:59 10/15/16 04:15 200 MLS/HR Ketorolac Tromethamine (Toradol Inj) 30 mg Q6H PRN IV 10/14/16 21:30 10/19/16 21:29 10/15/16 04:17 30 MG Ibuprofen (Advil Tab) 400 mg Q6H PRN PO 10/14/16 21:30 11/13/16 21:29 10/15/16 08:13 400 MG Morphine Sulfate (MoRPHine SULFATE INJ) 4 mg Q6H PRN IV 10/14/16 21:30 10/28/16 21:29
[2016-10-15] MEDS: ENOXAPARIN 40 MG/0.4 ML SYR SQ SCH (14:35)
[2016-10-15 14:59] VITALS: BP 114/71; PULSE 75; TEMP 36.9; O2SAT 100
[2016-10-15 23:28] VITALS: BP 165/69; PULSE 84; TEMP 36.6; O2SAT 97
[2016-10-16] MEDS ORDERED: ZOLPIDEM TARTRATE 5 MG TAB PO ONE (00:15)
[2016-10-16] MEDS: ACETAMINOPHEN 325 MG TAB PO PRN (00:38)
[2016-10-16] MEDS: AMPICILLIN/SULBACTAM SOD INJ 3,000 MG in SODIUM CHLORIDE 0.9% 100ML 100 ML IV SCH ×4 (04:04→21:43)
[2016-10-16 07:04] VITALS: BP 121/78; PULSE 80; TEMP 36.6; O2SAT 96
[2016-10-16 08:00] VITALS: O2SAT 96
[2016-10-16] MEDS: IBUPROFEN 200 MG TAB PO PRN ×2 (08:08→21:43)
[2016-10-16] MEDS: GABAPENTIN 600 MG TAB PO SCH ×3 (08:08→21:42)
[2016-10-16] MEDS: PANTOprazole SOD 40 MG TAB PO SCH ×2 (08:08→21:43)
[2016-10-16] MEDS: ENOXAPARIN 40 MG/0.4 ML SYR SQ SCH (14:35)
--- NOTE | 2016-10-16 15:16 | Progress Note ---
Medicine Progress Note Date & Time of Visit: Oct 16, 2016 at 15:00. Subjective Pt was seen and examined Lying in bed with no distress Pt said that the right hand pain, swelling and redness improved she started to be able to move her wrist Pt said that she slept well last night Denies any fever,palpitation, chest pain, dizziness and SOB Objective Last 8 Hrs Date Time Temp Pulse Resp B/P (MAP) Pulse Ox O2 Delivery O2 Flow Rate FiO2 10/16/16 08:00 96 Room Air 10/16/16 07:04 36.6 80 20 121/78 (92) 96 Room Air Physical Exam: General- No acute distress Head- atraumatic Eyes- PERRL, EOMI ENT- oropharynx clear Neck- supple, no JVD Lungs- clear to auscultation, No wheezing Heart- regular rhythm; no murmur Abdomen- normal bowel sounds, soft Extremities- no calf tenderness, +swelling, +tenderness and +erythema in dorsal area of the R hand improved Neuro- alert, oriented x 3; PERRL, EOMI; no facial palsy; no dysarthria Skin- warm & dry Assessment & Plan Right Hand Cellulitis Failed outpatient treatment with Augmentin for dog bite Afebrile and no leukocytosis Received Unasyn in the ER Blood cx no growth Continue IV Unasyn q6hr Continue monitor CBC pain control with tramadol and Toradol clinically improved Hypokalemia stable Monitor BMP Bipolar disorder Continue Lamictal Stable Tobacco abuse Counseling on smoking cessation GERD Continue PPI DVT px on Lovenox subq CODE STATUS FULL CODE Current Inpatient Medications: Current Inpatient Medications Medications (Trade) Dose Ordered Sig/Maulik Route Start Time Stop Time Status Last Admin Dose Admin Enoxaparin Sodium (Lovenox Inj) 40 mg Q24H SQ 10/14/16 12:15 11/13/16 12:14 Future hold 10/16/16 14:35 40 MG Acetaminophen (Tylenol Tab) 650 mg Q6 PRN PO 10/14/16 12:15 11/13/16 12:14 10/16/16 00:38 650 MG Tramadol HCl (Ultram Tab) 50 mg Q8 PRN PO 10/14/16 12:30 11/13/16 12:29 10/15/16 18:12 50 MG Gabapentin (Neurontin Tab) 600 mg TID PO 10/14/16 14:00 11/13/16 13:59 10/16/16 14:33 600 MG Lamotrigine (Lamictal Tab) 150 mg BID PO 10/14/16 21:00 11/13/16 20:59 10/16/16 08:07 150 MG Pantoprazole Sodium (Protonix Tab) 40 mg BID PO 10/14/16 21:00 11/13/16 20:59 10/16/16 08:08 40 MG Ampicillin Sodium/ Sulbactam Sodium 3000 mg/Sodium Chloride 108 ml @ 200 mls/hr Q6H IV 10/14/16 16:00 10/24/16 09:59 10/16/16 10:33 200 MLS/HR Ketorolac Tromethamine (Toradol Inj) 30 mg Q6H PRN IV 10/14/16 21:30 10/19/16 21:29 10/15/16 10:50 30 MG Ibuprofen (Advil Tab) 400 mg Q6H PRN PO 10/14/16 21:30 11/13/16 21:29 10/16/16 08:08 400 MG Morphine Sulfate (MoRPHine SULFATE INJ) 4 mg Q6H PRN IV 10/14/16 21:30 10/28/16 21:29
[2016-10-16 15:37] VITALS: BP 124/77; PULSE 79; TEMP 37; O2SAT 96
[2016-10-16] MEDS: TRAMADOL HCL 50 MG TAB PO PRN (15:47)
[2016-10-16] MEDS ORDERED: ZOLPIDEM TARTRATE 5 MG TAB PO PRN (23:00)
[2016-10-16 23:16] VITALS: BP 129/73; PULSE 70; TEMP 36.6; O2SAT 97
[2016-10-17] MEDS: AMPICILLIN/SULBACTAM SOD INJ 3,000 MG in SODIUM CHLORIDE 0.9% 100ML 100 ML IV SCH ×4 (04:43→21:53)
[2016-10-17] MEDS: IBUPROFEN 200 MG TAB PO PRN ×2 (05:00→21:53)
[2016-10-17 05:42] LABS: HEMATOCRIT 39.1 % (37-47); MEAN CELL VOLUME 99.7 fL (80-100); MEAN CORPUSCULAR HEMOGLOBIN 31.9 pg (25-34); MEAN PLATELET VOLUME 10.5 fL (7.4-10.4); PLATELET COUNT 202 K/uL (130-400); RED BLOOD COUNT 3.92 M/uL (4.2-5.4)
[2016-10-17 06:06] LABS: CREATININE 0.6 mg/dl (0.60-1.20)
[2016-10-17 07:43] VITALS: BP 119/78; PULSE 69; TEMP 36.9; O2SAT 98
[2016-10-17 08:00] VITALS: O2SAT 98
[2016-10-17] MEDS: PANTOprazole SOD 40 MG TAB PO SCH ×2 (08:15→21:52)
[2016-10-17] MEDS: GABAPENTIN 600 MG TAB PO SCH ×3 (08:16→21:52)
[2016-10-17] MEDS: TRAMADOL HCL 50 MG TAB PO PRN ×2 (12:50→22:45)
[2016-10-17] MEDS: ENOXAPARIN 40 MG/0.4 ML SYR SQ SCH (12:51)
[2016-10-17 15:19] VITALS: BP 107/66; PULSE 82; TEMP 36.8; O2SAT 98
--- NOTE | 2016-10-17 15:51 | DIAGNOSTIC IMAGING REPORT ---
RIGHT HAND ULTRASOUND CLINICAL HISTORY: Dog bite. Right hand cellulitis. Evaluate for abscess. COMPARISON STUDY: Right hand radiographs October 14, 2016. TECHNIQUE: Sonography of the right hand at site of maximal pain and swelling was performed. FINDINGS: No fluid collection was identified within the dorsal aspect of the right hand at site of maximal swelling. Edema was noted. IMPRESSION: No right hand abscess identified by sonography. Soft tissue edema suggestive of cellulitis. Electronically signed by: Michele Hidalgo M.D. 10/17/2016 3:49 PM Dictated Date/Time: 10/17/2016 3:42 PM
--- NOTE | 2016-10-17 16:18 | Progress Note ---
Medicine Progress Note Date & Time of Visit: Oct 17, 2016 at 16:14. Subjective Pt was seen and examined Sitting in bed with no distress eating lunch with at bedside Pt said that the redness and swelling improved she continue to have a lot of pain in the right hand denies any fever, chills, palpitation, chest pain and SOB Objective Last 8 Hrs Date Time Temp Pulse Resp B/P (MAP) Pulse Ox O2 Delivery O2 Flow Rate FiO2 10/17/16 15:19 36.8 82 20 107/66 (80) 98 Room Air Physical Exam: General- No acute distress Head- atraumatic Eyes- PERRL, EOMI ENT- oropharynx clear Neck- supple, no JVD Lungs- clear to auscultation, No wheezing Heart- regular rhythm; no murmur Abdomen- normal bowel sounds, soft Extremities- no calf tenderness, +swelling, +tenderness and +erythema in dorsal area of the R hand improved Neuro- alert, oriented x 3; PERRL, EOMI; no facial palsy; no dysarthria Skin- warm & dry Laboratory Results: Last 24 Hours Test 10/17/16 04:45 White Blood Count 5.10 K/uL Red Blood Count 3.92 M/uL Hemoglobin 12.5 g/dL Hematocrit 39.1 % Mean Corpuscular Volume 99.7 fL Mean Corpuscular Hemoglobin 31.9 pg Mean Corpuscular Hemoglobin Concent 32.0 g/dl RDW Standard Deviation 46.7 fL RDW Coefficient of Variation 12.9 % Platelet Count 202 K/uL Mean Platelet Volume 10.5 fL Creatinine 0.60 mg/dl Est Creatinine Clear Calc Drug Dose 125.3 ml/min Estimated GFR () 127.6 Estimated GFR (Non- 110.1 Assessment & Plan Right Hand Cellulitis Failed outpatient treatment with Augmentin for dog bite Afebrile and no leukocytosis Received Unasyn in the ER Blood cx no growth Continue monitor CBC pain control with tramadol and Toradol u/s of the hand showed no evidence of abscess Continue IV Unasyn q6hr Hypokalemia stable Monitor BMP Bipolar disorder Continue Lamictal Stable Tobacco abuse Counseling on smoking cessation GERD Continue PPI DVT px on Lovenox subq CODE STATUS FULL CODE Current Inpatient Medications: Current Inpatient Medications Medications (Trade) Dose Ordered Sig/Maulik Route Start Time Stop Time Status Last Admin Dose Admin Enoxaparin Sodium (Lovenox Inj) 40 mg Q24H SQ 10/14/16 12:15 11/13/16 12:14 Future hold 10/17/16 12:51 40 MG Acetaminophen (Tylenol Tab) 650 mg Q6 PRN PO 10/14/16 12:15 11/13/16 12:14 10/16/16 00:38 650 MG Tramadol HCl (Ultram Tab) 50 mg Q8 PRN PO 10/14/16 12:30 11/13/16 12:29 10/17/16 12:50 50 MG Gabapentin (Neurontin Tab) 600 mg TID PO 10/14/16 14:00 11/13/16 13:59 10/17/16 14:13 600 MG Lamotrigine (Lamictal Tab) 150 mg BID PO 10/14/16 21:00 11/13/16 20:59 10/17/16 08:16 150 MG Pantoprazole Sodium (Protonix Tab) 40 mg BID PO 10/14/16 21:00 11/13/16 20:59 10/17/16 08:15 40 MG Ampicillin Sodium/ Sulbactam Sodium 3000 mg/Sodium Chloride 108 ml @ 200 mls/hr Q6H IV 10/14/16 16:00 10/24/16 09:59 10/17/16 10:42 200 MLS/HR Ketorolac Tromethamine (Toradol Inj) 30 mg Q6H PRN IV 10/14/16 21:30 10/19/16 21:29 10/15/16 10:50 30 MG Ibuprofen (Advil Tab) 400 mg Q6H PRN PO 10/14/16 21:30 11/13/16 21:29 10/17/16 05:00 400 MG Morphine Sulfate (MoRPHine SULFATE INJ) 4 mg Q6H PRN IV 10/14/16 21:30 10/28/16 21:29 Zolpidem Tartrate (Ambien Tab) 5 mg ONE PRN PO 10/16/16 23:00 11/15/16 22:59
[2016-10-17 23:28] VITALS: BP 100/67; PULSE 66; TEMP 36.2; O2SAT 97
[2016-10-18] MEDS: AMPICILLIN/SULBACTAM SOD INJ 3,000 MG in SODIUM CHLORIDE 0.9% 100ML 100 ML IV SCH ×3 (03:45→16:03)
[2016-10-18 07:15] VITALS: BP 103/65; PULSE 75; TEMP 36.5; O2SAT 98
[2016-10-18] MEDS: IBUPROFEN 200 MG TAB PO PRN ×2 (07:30→15:05)
[2016-10-18] MEDS: GABAPENTIN 600 MG TAB PO SCH ×2 (07:42→14:18)
[2016-10-18] MEDS: PANTOprazole SOD 40 MG TAB PO SCH (07:43)
[2016-10-18] MEDS: TRAMADOL HCL 50 MG TAB PO PRN (09:05)
[2016-10-18] MEDS: ENOXAPARIN 40 MG/0.4 ML SYR SQ SCH (12:10)
[2016-10-18 14:33] VITALS: BP 112/75; PULSE 64; TEMP 36.8; O2SAT 98
--- NOTE | 2016-10-18 16:36 | Progress Note ---
Medicine Progress Note Date & Time of Visit: Oct 18, 2016 at 16:32. Subjective Pt was seen and examined sitting in chair comfortable with no distress pt said that the pain and swelling significantly improved in her right hand she starts to move her finger much better denies any fever, chills, palpitation and sob Objective Last 8 Hrs Date Time Temp Pulse Resp B/P (MAP) Pulse Ox O2 Delivery O2 Flow Rate FiO2 10/18/16 14:33 36.8 64 18 112/75 (87) 98 Physical Exam: General- No acute distress Head- atraumatic Eyes- PERRL, EOMI ENT- oropharynx clear Neck- supple, no JVD Lungs- clear to auscultation, No wheezing Heart- regular rhythm; no murmur Abdomen- normal bowel sounds, soft Extremities- no calf tenderness, +swelling, +tenderness and +erythema in dorsal area of the R hand improved Neuro- alert, oriented x 3; PERRL, EOMI; no facial palsy; no dysarthria Skin- warm & dry Assessment & Plan Right Hand Cellulitis Failed outpatient treatment with Augmentin for dog bite Afebrile and no leukocytosis Received Unasyn in the ER Blood cx no growth Continue monitor CBC pain control with tramadol and Toradol u/s of the hand showed no evidence of abscess Received IV Unasyn q6hr for 5days will transition to PO abx Hypokalemia stable Monitor BMP Bipolar disorder Continue Lamictal Stable Tobacco abuse Counseling on smoking cessation GERD Continue PPI DVT px on Lovenox subq CODE STATUS FULL CODE DISPOSITION Will discharge home today Follow up appointment with pcp Dr. Rodriguez on 10/23 @ 10:45 am Current Inpatient Medications: Current Inpatient Medications Medications (Trade) Dose Ordered Sig/Maulik Route Start Time Stop Time Status Last Admin Dose Admin Enoxaparin Sodium (Lovenox Inj) 40 mg Q24H SQ 10/14/16 12:15 11/13/16 12:14 Future hold 10/18/16 12:10 40 MG Acetaminophen (Tylenol Tab) 650 mg Q6 PRN PO 10/14/16 12:15 11/13/16 12:14 10/16/16 00:38 650 MG Tramadol HCl (Ultram Tab) 50 mg Q8 PRN PO 10/14/16 12:30 11/13/16 12:29 10/18/16 09:05 50 MG Gabapentin (Neurontin Tab) 600 mg TID PO 10/14/16 14:00 11/13/16 13:59 10/18/16 14:18 600 MG Lamotrigine (Lamictal Tab) 150 mg BID PO 10/14/16 21:00 11/13/16 20:59 10/18/16 07:42 150 MG Pantoprazole Sodium (Protonix Tab) 40 mg BID PO 10/14/16 21:00 11/13/16 20:59 10/18/16 07:43 40 MG Ampicillin Sodium/ Sulbactam Sodium 3000 mg/Sodium Chloride 108 ml @ 200 mls/hr Q6H IV 10/14/16 16:00 10/24/16 09:59 10/18/16 16:03 200 MLS/HR Ketorolac Tromethamine (Toradol Inj) 30 mg Q6H PRN IV 10/14/16 21:30 10/19/16 21:29 10/15/16 10:50 30 MG Ibuprofen (Advil Tab) 400 mg Q6H PRN PO 10/14/16 21:30 11/13/16 21:29 10/18/16 15:05 400 MG Morphine Sulfate (MoRPHine SULFATE INJ) 4 mg Q6H PRN IV 10/14/16 21:30 10/28/16 21:29 Zolpidem Tartrate (Ambien Tab) 5 mg ONE PRN PO 10/16/16 23:00 11/15/16 22:59 10/17/16 22:45 5 MG
[2016-10-18] MEDS ORDERED: AMOX875T PO (17:26)
--- NOTE | 2016-10-18 17:32 | Discharge Instructions ---
Discharge Instructions Date of Service Oct 18, 2016. Admission Reason for Admission: Cellulitis,Dog Bite Discharge Discharge Diagnosis / Problem: Right Hand Cellulitis, Hypokalemia Discharge Goals Goal(s): Decrease discomfort, Improve function, Improve disease control Activity Recommendations Activity Limitations: resume your previous activity (as tolerated) . Instructions / Follow-Up Instructions / Follow-Up Follow up appointment with your Primary care provider Dr. Rodriguez on 10/23 @ 10: 45 am Complete course of antibiotic (Augmentin) Return to work note given to patient Current Hospital Diet Patient's current hospital diet: Low Sodium Diet (2gm Na) Discharge Diet Recommended Diet: Low Sodium Diet (2gm Na) Pending Studies Studies pending at discharge: no Medical Emergencies . Who to Call and When: Medical Emergencies: If at any time you feel your situation is an emergency, please call 911 immediately. . Non-Emergent Contact Non-Emergency issues call your: Primary Care Provider Call Non-Emergent contact if: you have a fever, your pain is worsening, you have any medication questions . . "Provider Documentation" section prepared by Ethel Vidal. . VTE Core Measure Inpt VTE Proph given/why not?: Enoxaparin (Lovenox)SQ
[2016-10-18 17:34] VITALS: BP 112/75; PULSE 64; TEMP 36.8; O2SAT 98
[2016-10-18] MEDS ORDERED: MTR600X PO (17:36)
--- NOTE | 2016-10-21 09:09 | Discharge Summary ---
Discharge Summary Date of Service Oct 21, 2016. Discharge Summary Admission Date: Oct 14, 2016 at 12:06 Discharge Date: Oct 18, 2016 Discharge Disposition: Home Principal Diagnosis: Right Hand Cellulitis Secondary Diagnoses/Problems: Hypokalemia Bipolar disorder GERD Tobacco use Procedures: RIGHT HAND ULTRASOUND CLINICAL HISTORY: Dog bite. Right hand cellulitis. Evaluate for abscess. COMPARISON STUDY: Right hand radiographs October 14, 2016. TECHNIQUE: Sonography of the right hand at site of maximal pain and swelling was performed. FINDINGS: No fluid collection was identified within the dorsal aspect of the right hand at site of maximal swelling. Edema was noted. IMPRESSION: No right hand abscess identified by sonography. Soft tissue edema suggestive of cellulitis. Electronically signed by: Michele Hidalgo M.D. 10/17/2016 3:49 PM Dictated Date/Time: 10/17/2016 3:42 PM Medication Reconciliation New Medications: Ibuprofen (Ibuprofen) 600 Mg Tab 1 TAB PO Q8H PRN for Pain for 5 Days Continued Medications: Amoxicillin & Pot Clavulanate (Augmentin 875-125 mg) 1 Tab Tab 875 MG PO BID for 8 Days, #16 TAB (This prescription has been renewed) Gabapentin (Gabapentin) 600 Mg Tab 600 MG PO TID Lamotrigine (Lamictal) 150 Mg Tab 150 MG PO BID, TAB Levonorgestrel (Iud) (Mirena) 20 Mcg/24 Hr Iud 20 MCG INT UTER UD Multivit/Min/Iron/Fol Ac/Pren ( Vitamin) Tab 1 TAB PO DAILY, TAB Omeprazole (Prilosec) 20 Mg Cap 20 MG PO BID Admission Information HPI (per Admitting provider): 46 year old female who presents to the Emergency Room with complaints of swelling and redness to right hand. Pt was in the ER Friday after she had a dog bite. she was discharged on Augmentin. Pt said that her dogs were fighting and she tried to grab the little dog and she was accidentally bitten by the other dog on her dorsal area of her right hand and in one finger in the left hand. After getting bitten, she became nauseated, diaphoretic, lightheaded and passed out. She denies any injury occurring when she passed out. Her tetanus vaccin is up to date. The dogs are up to date with the vaccinations as well. She is back in the ER today because the right hand is erythematous and swelling with increase pain. She said that the redness is spreading almost to her elbow area, she is unable to flex and extend the wrist and the fingers. The dorsal and the palm area of the the right hand are very tender to touch. she said that she feels a grinding sensation when she tried to move the right wrist. she said that the pain is 10/10 and associated with chills. She denies any fever, chest pain, palpitation and sob. Physical Exam (per Admitting): General Appearance: WD/WN, no apparent distress Head: normocephalic, atraumatic Eyes: PERRL, EOMI ENT: normal ENT inspection, hearing grossly normal Neck: supple, no JVD Respiratory/Chest: chest non-tender, lungs clear, normal breath sounds, no respiratory distress, no accessory muscle use Cardiovascular: regular rate, rhythm, no JVD Abdomen/GI: normal bowel sounds, non tender, soft Back: normal inspection, no CVA tenderness Extremities/Musculoskelatal: no calf tenderness, + pertinent finding ( swelling, tenderness and erythema in the right hand more prominent in the dorsal area of the hand. Small puncture wound to the hypothenar eminence on the lateral aspect of the right hand. Puncture wound between the 3rd and 4th metacarpals on the dorsal area of the right hand. Small abrasion on the dorsal aspect of the left thumb. ) Neurologic/Psych: no motor/sensory deficits, alert, normal mood/affect, oriented x 3 Skin: warm/dry (right hand redness), no rash Lymphatic: no adenopathy Hospital Course Right Hand Cellulitis Failed outpatient treatment with Augmentin for dog bite Afebrile and no leukocytosis Received Unasyn in the ER Blood cx no growth Continue monitor CBC pain control with tramadol and Toradol u/s of the hand showed no evidence of abscess Received IV Unasyn q6hr for 5days will transition to PO abx Hypokalemia stable Monitor BMP Bipolar disorder Continue Lamictal Stable Tobacco abuse Counseling on smoking cessation GERD Continue PPI DVT px on Lovenox subq CODE STATUS FULL CODE DISPOSITION Will discharge home today Follow up appointment with pcp Dr. Rodriguez on 10/23 @ 10:45 am Total time spent on discharge = 35 minutes This includes examination of the patient, discharge planning, medication reconciliation, and communication with other providers. Discharge Instructions Discharge Instructions Date of Service Oct 18, 2016. Admission Reason for Admission: Cellulitis,Dog Bite Discharge Discharge Diagnosis / Problem: Right Hand Cellulitis, Hypokalemia Discharge Goals Goal(s): Decrease discomfort, Improve function, Improve disease control Activity Recommendations Activity Limitations: resume your previous activity (as tolerated) . Instructions / Follow-Up Instructions / Follow-Up Follow up appointment with your Primary care provider Dr. Rodriguez on 10/23 @ 10: 45 am Complete course of antibiotic (Augmentin) Return to work note given to patient Current Hospital Diet Patient's current hospital diet: Low Sodium Diet (2gm Na) Discharge Diet Recommended Diet: Low Sodium Diet (2gm Na) Pending Studies Studies pending at discharge: no Medical Emergencies . Who to Call and When: Medical Emergencies: If at any time you feel your situation is an emergency, please call 911 immediately. . Non-Emergent Contact Non-Emergency issues call your: Primary Care Provider Call Non-Emergent contact if: you have a fever, your pain is worsening, you have any medication questions . . "Provider Documentation" section prepared by Ethel Vidal. . VTE Core Measure Inpt VTE Proph given/why not?: Enoxaparin (Lovenox)SQ Additional Copies To Jayjay Rodriguez M.D.
[2017-04-16] MEDS ORDERED: LMC/150 PO (14:57)
[2017-04-16] MEDS ORDERED: OMEP20CA9 PO (14:57)
[2017-04-16] MEDS ORDERED: GABA600T PO (14:57)
[2017-04-16] MEDS ORDERED: PRENTAB26 PO (14:57)
[2017-04-16] MEDS ORDERED: MULT-506 PO (14:57)
[2017-04-17] MEDS ORDERED: HYDR-5688 PO (08:40)
== END 2016-10-18 18:00 | disposition home or self-care (01) | DRG 603 ==
LOC: C.EDB 08:49 → C.MS2W 12:06 → ENRESERV 12:13
PROVIDERS: ADMIT Internal Medicine; ATTEND Internal Medicine
DX: L03.115 Cellulitis of right lower limb (principal); E87.6 Hypokalemia; F31.9 Bipolar disorder, unspecified; F17.210 Nicotine dependence, cigarettes, uncomplicated; J45.909 Unspecified asthma, uncomplicated; K21.9 Gastro-esophageal reflux disease without esophagitis; Z87.440 Personal history of urinary (tract) infections; Z88.1 Allergy status to other antibiotic agents; Z88.3 Allergy status to other anti-infective agents; Z91.048 Other nonmedicinal substance allergy status; Z82.49 Family history of ischemic heart disease and other diseases of the circulatory system; R55 Syncope and collapse; W54.0XXA Bitten by dog, initial encounter

== ENCOUNTER → 2016-11-07 | Day surgery (SDC) | payer BC ==
[2016-10-02 14:35] VITALS: Ht 162.6 cm; Wt 87.7 kg
[~2016-11-07] VITALS: Ht 162.6 cm; Wt 87.7 kg
[~2016-11-07] MED LIST changes: +CEFAZOLIN 2000 MG/60 ML D5W IV SCH; +CYCL10TA6 PO; +HYDR-5688 PO; +IBUP-1450 PO; +LACTATED RINGER'S 1000ML 1,000 ML IV SCH; +MTR600X PO; +PRED50TA PO
== END | disposition home or self-care (01) ==
LOC: EDSTATUS 08:45 → C.PAT 14:00
PROVIDERS: ATTEND Orthopaedic Surgery
DX: G56.03 Carpal tunnel syndrome, bilateral upper limbs (principal)

== ENCOUNTER 2017-02-14 02:31 | Emergency (ER) | payer BC ==
[~2017-02-14] VITALS: Ht 160 cm; Wt 87.5 kg
[~2017-02-14 02:31] MED LIST changes: -CEFAZOLIN 2000 MG/60 ML D5W IV SCH; -CYCL10TA6 PO; -HYDR-5688 PO; -IBUP-1450 PO; -LACTATED RINGER'S 1000ML 1,000 ML IV SCH; -PRED50TA PO
[2017-02-14 02:34] VITALS: TEMP 36.6; Ht 160 cm; Wt 87.5 kg
[2017-02-14] MEDS ORDERED: IBUP-1450 PO (03:16)
[2017-02-14] MEDS ORDERED: ONDANSETRON INJ 2 MG/ML 2 ML VIAL IV STA (03:23)
[2017-02-14] MEDS ORDERED: KETOROLAC TROMETHAMINE 30 MG/ML VIAL IV STA (03:23)
[2017-02-14] MEDS ORDERED: SODIUM CHLORIDE 0.9% 1000ML 1,000 ML IV ONE (03:30)
[2017-02-14] MEDS ORDERED: MoRPHine SULFATE 4 MG/ML 1 ML CARP\\VIAL IV ONE (03:30)
[2017-02-14 04:08] LABS: BASO % 0.3 %; BASO ABS # 0.02 K/uL (0-0.2); COMPLETE YES; EOS % 1.3 %; HEMATOCRIT 40.2 % (37-47); IG% 0.2 %; LYMPH % 22.3 %; LYMPH ABS # 1.34 K/uL (1.2-3.4); MEAN CELL VOLUME 97.6 fL (80-100); MEAN CORPUSCULAR HEMOGLOBIN 31.8 pg (25-34); MEAN CORPUSCULAR HGB CONC 32.6 g/dl (32-36); MEAN PLATELET VOLUME 9.8 fL (7.4-10.4); MONO % 10.6 %; NEUT % 65.3 %; PLATELET COUNT 241 K/uL (130-400); RED BLOOD COUNT 4.12 M/uL (4.2-5.4); WHITE BLOOD COUNT 6.01 K/uL (4.8-10.8)
[2017-02-14 04:10] LABS: URINE APPEARANCE CLEAR (CLEAR); URINE BILIRUBIN NEG (NEG); URINE COLOR YELLOW; URINE NITRITE NEG (NEG); URINE PH 7.5 (4.5-7.5); URINE SPECIFIC GRAVITY 1.007 (1.000-1.030); UROBILINOGEN NEG (NEG); ZZUR CULT IF INDIC CLEAN CATCH NO
[2017-02-14 04:21] LABS: MANUAL MICROSCOPIC REQUIRED? NO; REVIEW REQ? NO
[2017-02-14 04:40] LABS: CALCIUM 8.8 mg/dl (8.5-10.1); CREATININE 0.6 mg/dl (0.60-1.20); POTASSIUM 3.9 mmol/L (3.5-5.1)
[2017-02-14 04:43] LABS: ALB/GLOB RATIO 1.3 (0.9-2)
[2017-02-14] MEDS ORDERED: CYCL10TA6 PO (06:01)
[2017-02-14] MEDS ORDERED: PRED50TA PO (06:01)
[2017-02-14] MEDS ORDERED: HYDR-5688 PO (06:01)
[2017-02-14 06:18] VITALS: BP 115/62; PULSE 67; O2SAT 98
--- NOTE | 2017-02-14 07:50 | DIAGNOSTIC IMAGING REPORT ---
CT OF THE ABDOMEN AND PELVIS WITHOUT CONTRAST CLINICAL HISTORY: Left hip pain radiating to left flank. COMPARISON STUDY: CT of the abdomen and pelvis March 16, 2016. TECHNIQUE: Axial images of the abdomen and pelvis were obtained without IV contrast. Images were reviewed in the axial, sagittal, and coronal planes. A dose lowering technique was utilized adhering to the principles of ALARA. FINDINGS: Note is made of a 4 mm calculus within the lower pole of the right kidney. There are no ureteral calculi and there is no hydronephrosis or hydroureter. Valuation of the remainder of the abdomen and pelvis is suboptimal on this unenhanced exam. There is no biliary ductal dilatation status post cholecystectomy. Unenhanced images of liver, spleen, adrenal glands and pancreas are normal. There is no peripancreatic infiltration. There is no evidence for a bowel obstruction. No suspicious skeletal lesions are identified. There is no ascites or lymphadenopathy. IMPRESSION: 1. 4 mm right renal calculus. No ureteral calculi or hydronephrosis. 2. No acute process within the abdomen or pelvis on unenhanced exam. Electronically signed by: Michele Hidalgo M.D. 02/14/2017 7:49 AM Dictated Date/Time: 02/14/2017 7:45 AM
--- NOTE | 2017-02-15 07:55 | EMERGENCY ROOM VISIT NOTE ---
History First contact with patient: 03:01 Chief Complaint: HIP PAIN Stated Complaint: LEFT HIP PAIN History of Present Illness The patient is a 47 year old female who presents to the Emergency Room with complaints of left-sided back pain that radiates into her left-sided hip. The patient does not recall injury or trauma. Her symptoms have been slowly worsening over the past week. Different motions will cause worsening pain, however she does report colicky pain that will increase in severity. At worse the patient states the pain is a 9/10. She has not had fever or chills. No difficulty using the bathroom. Review of Systems More than 10 systems were reviewed and otherwise negative with the exception of history of present illness. Past Medical/Surgical History Medical Problems: (1) Acute bronchitis, unspecified (2) (3) Cellulitis (4) Endometriosis (5) Esophageal reflux (6) Tonsillectomy (7) Unspecified asthma (8) Urinary tract infection Family History Cardiovascular disease Kidney disease Social History Smoking Status: Current Every Day Smoker Drug Use: none Marital Status: Housing Status: lives with family Occupation Status: employed Current/Historical Medications Scheduled Amoxicillin & Pot Clavulanate (Augmentin 875-125 mg), 875 MG PO BID Cyclobenzaprine Hcl (Flexeril), 10 MG PO TID Gabapentin (Gabapentin), 600 MG PO TID Lamotrigine (Lamictal), 150 MG PO BID Levonorgestrel (Iud) (Mirena), 20 MCG INT UTER UD Multivit/Min/Iron/Fol Ac/Pren ( Vitamin), 1 TAB PO DAILY Omeprazole (Prilosec), 20 MG PO BID Prednisone (Prednisone), 50 MG PO DAILY Scheduled PRN Hydrocodone/Acetaminophen 5MG/325MG (Lynndyl 5MG/325MG), 1 TABLET PO Q6 PRN for Pain Ibuprofen (Motrin), 600 MG PO Q8 PRN for Pain Physical Exam Vital Signs Date Time Temp Pulse Resp B/P (MAP) Pulse Ox O2 Delivery O2 Flow Rate FiO2 02/14/17 06:18 67 18 115/62 98 02/14/17 04:29 62 18 121/67 99 Room Air 02/14/17 02:34 36.6 101 20 144/93 99 Room Air Physical Exam VITALS: Vitals are noted on the nurse's note and reviewed by myself. Vital signs stable. GENERAL: Well-developed, well-nourished, white female, who is in no acute distress and resting comfortably. Patient is cooperative with the examination. NECK: Supple without nuchal rigidity. No lymphadenopathy. No thyromegaly. Cervical spine is nontender. HEART: Regular rate and rhythm without murmurs gallops or rubs. LUNGS: Clear to auscultation bilaterally without wheezes, rales or rhonchi. No retractions or accessory muscle use. ABDOMEN: Positive normal bowel sounds x 4. Soft, nontender, without masses or organomegaly. No guarding or rebound tenderness. MUSCULOSKELETAL: No muscle atrophy, erythema, or edema noted. Full range of motion without joint tenderness in all extremities. Medical Decision & Procedures ER Provider Diagnostic Interpretation: CT OF THE ABDOMEN AND PELVIS WITHOUT CONTRAST CLINICAL HISTORY: Left hip pain radiating to left flank. COMPARISON STUDY: CT of the abdomen and pelvis March 16, 2016. TECHNIQUE: Axial images of the abdomen and pelvis were obtained without IV contrast. Images were reviewed in the axial, sagittal, and coronal planes. A dose lowering technique was utilized adhering to the principles of ALARA. FINDINGS: Note is made of a 4 mm calculus within the lower pole of the right kidney. There are no ureteral calculi and there is no hydronephrosis or hydroureter. Valuation of the remainder of the abdomen and pelvis is suboptimal on this unenhanced exam. There is no biliary ductal dilatation status post cholecystectomy. Unenhanced images of liver, spleen, adrenal glands and pancreas are normal. There is no peripancreatic infiltration. There is no evidence for a bowel obstruction. No suspicious skeletal lesions are identified. There is no ascites or lymphadenopathy. IMPRESSION: 1. 4 mm right renal calculus. No ureteral calculi or hydronephrosis. 2. No acute process within the abdomen or pelvis on unenhanced exam. Laboratory Results 02/14/17 03:45 Red Blood Count 4.12, Mean Corpuscular Volume 97.6, Mean Corpuscular Hemoglobin 31.8, Mean Corpuscular Hemoglobin Concent 32.6, Mean Platelet Volume 9.8, Neutrophils (%) (Auto) 65.3, Lymphocytes (%) (Auto) 22.3, Monocytes (%) (Auto) 10.6, Eosinophils (%) (Auto) 1.3, Basophils (%) (Auto) 0.3, Neutrophils # (Auto ) 3.92, Lymphocytes # (Auto) 1.34, Monocytes # (Auto) 0.64, Eosinophils # (Auto ) 0.08, Basophils # (Auto) 0.02 02/14/17 03:45 Test 02/14/17 03:40 02/14/17 03:45 Urine Color YELLOW Urine Appearance CLEAR (CLEAR) Urine pH 7.5 (4.5-7.5) Urine Specific [place] 1.007 (1.000-1.030) Urine Protein NEG (NEG) Urine Glucose (UA) NEG (NEG) Urine Ketones NEG (NEG) Urine Occult Blood TRACE (NEG) Urine Nitrite NEG (NEG) Urine Bilirubin NEG (NEG) Urine Urobilinogen NEG (NEG) Urine Leukocyte Esterase NEG (NEG) Urine WBC (Auto) 0 /hpf (0-5) Urine RBC (Auto) 0-4 /hpf (0-4) Urine Hyaline Casts (Auto) 0 /lpf (0-5) Urine Epithelial Cells (Auto) 5-10 /lpf (0-5) Urine Bacteria (Auto) NEG (NEG) White Blood Count 6.01 K/uL (4.8-10.8) Red Blood Count 4.12 M/uL (4.2-5.4) Hemoglobin 13.1 g/dL (12.0-16.0) Hematocrit 40.2 % (37-47) Mean Corpuscular Volume 97.6 fL (80-100) Mean Corpuscular Hemoglobin 31.8 pg (25-34) Mean Corpuscular Hemoglobin Concent 32.6 g/dl (32-36) Platelet Count 241 K/uL (130-400) Mean Platelet Volume 9.8 fL (7.4-10.4) Neutrophils (%) (Auto) 65.3 % Lymphocytes (%) (Auto) 22.3 % Monocytes (%) (Auto) 10.6 % Eosinophils (%) (Auto) 1.3 % Basophils (%) (Auto) 0.3 % Neutrophils # (Auto) 3.92 K/uL (1.4-6.5) Lymphocytes # (Auto) 1.34 K/uL (1.2-3.4) Monocytes # (Auto) 0.64 K/uL (0.11-0.59) Eosinophils # (Auto) 0.08 K/uL (0-0.5) Basophils # (Auto) 0.02 K/uL (0-0.2) RDW Standard Deviation 46.3 fL (36.4-46.3) RDW Coefficient of Variation 12.9 % (11.5-14.5) Immature Granulocyte % (Auto) 0.2 % Immature Granulocyte # (Auto) 0.01 K/uL (0.00-0.02) Anion Gap 6.0 mmol/L (3-11) Est Creatinine Clear Calc Drug Dose 122.9 ml/min Estimated GFR () 126.7 Estimated GFR (Non- 109.3 BUN/Creatinine Ratio 19.0 (10-20) Calcium Level 8.8 mg/dl (8.5-10.1) Total Bilirubin 0.4 mg/dl (0.2-1) Aspartate Amino Transf (AST/SGOT) 9 U/L (15-37) Alanine Aminotransferase (ALT/SGPT) 10 U/L (12-78) Alkaline Phosphatase 70 U/L (45-117) Total Protein 6.7 gm/dl (6.4-8.2) Albumin 3.8 gm/dl (3.4-5.0) Globulin 2.9 gm/dl (2.5-4.0) Albumin/Globulin Ratio 1.3 (0.9-2) Lipase 137 U/L (73-393) Medications Administered Medications (Trade) Dose Ordered Sig/Maulik Route Start Time Stop Time Status Last Admin Dose Admin Sodium Chloride 1,000 ml @ 999 mls/hr Q1H1M ONCE IV 02/14/17 03:30 02/14/17 04:30 DC 02/14/17 04:00 999 MLS/HR Morphine Sulfate (MoRPHine SULFATE INJ) 4 mg NOW ONCE IV 02/14/17 03:30 02/14/17 03:31 DC 02/14/17 04:00 4 MG Ketorolac Tromethamine (Toradol Inj) 30 mg NOW STAT IV 02/14/17 03:23 02/14/17 03:26 DC 02/14/17 03:59 30 MG Ondansetron HCl (Zofran Inj) 4 mg NOW STAT IV 02/14/17 03:23 02/14/17 03:26 DC 02/14/17 03:59 4 MG ED Course Physical exam and history were performed. Nursing notes, EMR, and Medication List were personally reviewed. Patient appears to have left flank pain with radiation to her left hip. The patient does not appear toxic on examination. She does not have significant reproducible tenderness on palpation, and there was concern that her symptoms may represent a stone or other etiology. IV access was established and labs were obtained. The patient was hydrated and medicated as above. CT scan was performed. The patient's blood work is as above and was reviewed. She does not have significant elevated white blood cell count, worsening anemia, bandemia, or significant electrolyte imbalance. Lipase and transaminases are nondiagnostic. Urine is without obvious infection and culture is pending. CT scan is as above and did not show significant acute process. Overall the patient appears well for discharge home. I suspect that her symptoms are related to a musculoskeletal etiology. She will be given a short course of prednisone, Flexeril, and Vicodin. She is to follow with her primary care physician for further care and management. She was otherwise invited back to the ER with any new, worsening, or concerning symptoms. The chart was completed utilizing [employer] Speech Voice Recognition Software. Grammatical errors, random word insertions, pronoun errors, and incomplete sentences are an occasional consequence of this system due to software limitations, ambient noise, and hardware issues. Any formal questions or concerns about the content, text, or information contained within the body of this dictation should be directly addressed to the provider for clarification. . Medical Decision Differential diagnosis: Etiologies such as musculoskeletal, disc herniation, fracture, aortic disease, metastatic disease, cord compression, discitis, infection, renal colic, gastrointestinal, acute exacerbation of chronic back pain, sciatica, cauda equina, as well as others were entertained. Impression Primary Impression: Left flank pain Additional Impression: Left hip pain Departure Information Dispostion Home / Self-Care Condition GOOD Prescriptions Hydrocodone/Acetaminophen 5MG/325MG (Lynndyl 5MG/325MG) Tab 1 TABLET PO Q6 Y for Pain, #12 TAB For Initial Treatment Prov: Quang Duenas PA-C 02/14/17 Cyclobenzaprine Hcl (FLEXERIL) 10 Mg Tab 10 MG PO TID for 5 Days, #15 TAB Prov: Quang Duenas PA-C 02/14/17 Prednisone (Prednisone) 50 Mg Tab 50 MG PO DAILY for 4 Days, #4 TAB Prov: Quang Duenas PA-C 02/14/17 Forms WORK / SCHOOL INSTRUCTIONS, HOME CARE DOCUMENTATION FORM, IMPORTANT VISIT INFORMATION Patient Instructions [facility] Additional Instructions You were seen and evaluated today on an emergency basis only. This is not a substitute for, or an effort to provide, complete comprehensive medical care. It is not possible to recognize and treat all injuries or illnesses in a single emergency department visit. For this reason it is recommended that you followup with your primary care physician in the next week for recheck of your condition. For baseline pain relief you may alternate ibuprofen and acetaminophen every 4 hours for pain control. Take 600 mg ibuprofen (Advil) and then 4 hours later take 1000 mg acetaminophen (Tylenol). Do not take more than 3000 mg acetaminophen in a single day. Lynndyl (hydrocodone/acetaminophen) 5/325 mg every 6 hours as needed for worsening breakthrough pain. Do not drink or drive on Lynndyl. This medication will likely make you tired. Do not take Lynndyl and Tylenol at the same time as both contain acetaminophen. Lynndyl may cause constipation. You may wish to take an [id number] stool softener like Colace if this occurs. Take prednisone as prescribed You are welcome to return to the emergency department anytime with new, worsening, or concerning symptoms. Problem Qualifiers
== END 2017-02-14 06:20 | disposition home or self-care (01) ==
LOC: C.EDB 02:32
DX: R10.9 Unspecified abdominal pain (principal); M25.552 Pain in left hip; N80.9 Endometriosis, unspecified; K21.9 Gastro-esophageal reflux disease without esophagitis; J45.909 Unspecified asthma, uncomplicated; F17.200 Nicotine dependence, unspecified, uncomplicated; Z87.440 Personal history of urinary (tract) infections; Z98.891 History of uterine scar from previous surgery; Z90.89 Acquired absence of other organs; Z79.899 Other long term (current) drug therapy

== ENCOUNTER → 2017-04-17 | Day surgery (SDC) | payer BC ==
[2017-04-16 14:57] VITALS: Ht 160 cm; Wt 85.0 kg
[~2017-04-17] VITALS: Ht 160 cm; Wt 85.0 kg
[~2017-04-17] MED LIST changes: -AMOX875T PO; +ATROPINE SULFATE 0.1 MG/ML 5ML SYR IV PRN; +CEFAZOLIN 2000MG IV PUSH 10 ML IV SCH; +EpHEDrine SULFATE INJ 50 MG/ML AMP IV PRN; +FENTANYL CITRATE INJ 50 MCG/1 ML 2 ML VIAL IV PRN; +FENTANYL CITRATE INJ 50 MCG/1 ML 2 ML VIAL ONE; +GABA600T PO; +HYDR-5688 PO; +HYDROCODONE/ACETAMOPHEN 5/325MG TAB PO PRN; +LACTATED RINGER'S 1000ML 1,000 ML IV SCH; -LAMO150T32 PO; -LEVOIUD INT UTER; +LIDOCAINE HCL 2% 2 ML VIAL (20MG/ML) ONE; +LIDOCAINE HCL 2% LOCAL 20 ML VIAL ONE; +LMC/150 PO; +MIDAZOLAM HCL 1 MG/ML 2ML VIAL ONE; -MTR600X PO; +MULT-506 PO; -NRN600 PO; +ONDANSETRON INJ 2 MG/ML 2 ML VIAL IV PRN; +ONDANSETRON INJ 2 MG/ML 2 ML VIAL ONE; +PROPOFOL IV EMULSION 10 MG/ML 20 ML VIAL IV ONE; +SODIUM CHLORIDE 0.9% 1000ML 1,000 ML IV SCH
--- NOTE | 2017-04-17 08:10 | History & Physical Bridge Note ---
H&P Re-Evaluation Bridge Note: I have examined the patient, reviewed the History & Physical and in the interval since the performance of the History & Physical I have noted the following changes of clinical significance: No changes noted
--- NOTE | 2017-04-17 08:36 | [facility] Post Operative Brief Note ---
Immediate Operative Summary Operative Date Apr 17, 2017. Pre-Operative Diagnosis Bilateral carpal tunnel syndrome Post-Operative Diagnosis Same as preop Procedure(s) Performed Bilateral Carpal Tunnel Release Surgeon Dr. Acosta Pipe Organ Technician Surgeon(s) Johnathon Fierro PA-C Estimated Blood Loss 5 mL Findings as above Specimens None Complication(s) None Disposition Recovery Room / PACU
--- NOTE | 2017-04-17 08:42 | Discharge Instructions-SurgCtr ---
Discharge Instructions Date of Service Apr 17, 2017. Visit Reason for Visit: Bilateral Carpal Tunnel Syndrome Discharge Discharge Diagnosis / Problem: SAME ABOVE Discharge Goals Goal(s): Decrease discomfort, Improve function Medications Stopped Medications Name(s): No blood thinners Restart Stopped Medication(s): MAY RESTART 04/17/2017 Activity Recommendations Activity Limitations: as noted below Anesthesia . Post Anesthesia Instructions: If you have had General Anesthesia or IV Sedation: * Do not drive today. * Resume driving when surgeon permits. * Do not make important decisions or sign legal documents today. * Call surgeon for: 1. Temperature elevations greater than 101 degrees F. 2. Uncontrollable pain. 3. Excessive bleeding. 4. Persistent nausea and vomiting. 5. Medication intolerance (nausea, vomiting or rash). * For nausea and vomiting use only clear liquids such as: tea, soda, bouillon until nausea subsides, then gradually increase diet as tolerated. * If you have any concerns or questions, call your surgeon's office. If physician is unavailable and it is an emergency, call 911 or go to the nearest emergency room. . Instructions / Follow-Up Instructions / Follow-Up MEDICATIONS: * Resume previous medications unless instructed otherwise by your surgeon. * Always take pain medication on a full stomach or with food to avoid upset stomach. * Do not drink alcohol or drive while taking narcotics. * Ibuprofen or Tylenol may be taken if narcotic not needed. SPECIAL CARE INSTRUCTIONS: __ None _X_ Keep extremity elevated and iced x 48 hours; apply ice 20-30 minutes 8-10 times/day. May remove at night. __ Sling __24 hrs/day __ Remove at night __ Shoulder Immobilizer __ 24 hrs/day __ Remove at night _X_ Dressing __ Maintain until seen in office, may shower with plastic over site _X_ Remove dressings in 5 DAYS. MAY SHOWER IF COVERED WITH PLASTIC BAG _X_ Cover incisions with band-aids after showering __ Do not remove steri-strips Call physician if chills or temperature rises above 102 degrees or pain unrelieved by prescribed pain medications at . . Diet Recommendations Home Diet: no limitations Fluid Restriction: None Procedures Procedures Performed: Bilateral Carpal Tunnel Release Pending Studies Studies pending at discharge: no Work Instructions Return To Work: after follow-up Medical Emergencies . Who to Call and When: Medical Emergencies: If at any time you feel your situation is an emergency, please call 911 immediately. . Non-Emergent Contact Non-Emergency issues call your: Primary Care Provider Call Non-Emergent contact if: you have a fever, temperature is above 101.5 . . "Provider Documentation" section prepared by Johnathon Fierro. .
--- NOTE | 2017-04-17 08:55 | OPERATIVE REPORT ---
DATE OF OPERATION: 04/17/2017 PREOPERATIVE DIAGNOSIS: Bilateral carpal tunnel syndrome. POSTOPERATIVE DIAGNOSIS: Same. PROCEDURE: Bilateral open carpal tunnel release. SURGEON: Dr. Reese Acosta. DESIZING MACHINE OPERATOR HEAD END: Jimmy Fierro PA-C, whose assistance was necessary for positioning of the hand and helping with retraction and closure. ANESTHESIA: Local with sedation. COMPLICATIONS: None. CONDITION: Stable to PACU. INDICATIONS: Kary is a pleasant 47-year-old female who presented to my office with complaints of numbness in both hands. EMG and clinical examination were diagnostic for bilateral carpal tunnel syndrome. After failing conservative treatment, she elected to undergo an open bilateral carpal tunnel release. OPERATION AND FINDINGS: On 04/17/2017 she arrived at [facility] for the above procedure. She was seen in the preoperative holding area and the operative extremity was identified and signed. She was given a preoperative antibiotic and taken back to the operating room, laid on the table in supine position and put under basic sedation. Both hands were then prepped and draped in sterile fashion. Time-out was done and the patient and operative extremity was properly identified. The left hand was done first. The surgical site was anesthetized with 10 mL of lidocaine. A longitudinal incision was then made directly over the transverse carpal ligament. Dissection was taken down through the fascia and the ligament was exposed. A sharp knife and tenotomy scissors were then used to release the transverse carpal ligament. Care was taken not to disrupt the motor branch or the palmar cutaneous branch. The wound was then irrigated and closed with 4-0 nylon suture in a mattress fashion. She was then placed in a soft dressing. Attention was then turned to the right side. The right side was done in a similar fashion. She was placed in a soft dressing and then taken to the postanesthesia care unit in stable condition. She tolerated the procedure well. I attest to the content of the Intraoperative Record and any orders documented therein. Any exception s are noted below.
--- NOTE | 2017-04-17 09:07 | Anesthesia Progress Nt - [facility] ---
Anesthesia Post Op Note Date & Time Apr 17, 2017 at 09:07 Vital Signs Pain Intensity: 0 Vital Signs Past 12 Hours Date Time Temp Pulse Resp B/P (MAP) Pulse Ox O2 Delivery O2 Flow Rate FiO2 04/17/17 08:43 36.7 73 16 124/82 (96) 99 Room Air 04/17/17 07:28 36.7 76 16 131/84 (100) 100 Room Air Notes Mental Status: alert / awake / arousable, participated in evaluation Pt Amnestic to Procedure: Yes Nausea / Vomiting: adequately controlled Pain: adequately controlled Airway Patency, RR, SpO2: stable & adequate BP & HR: stable & adequate Hydration State: stable & adequate Anesthetic Complications: no major complications apparent
[2017-04-17 09:20] VITALS: BP 116/77; PULSE 68; TEMP 36.7; O2SAT 97
== END | disposition home or self-care (01) ==
LOC: X.SURG 07:10
PROVIDERS: ATTEND Orthopaedic Surgery
DX: G56.03 Carpal tunnel syndrome, bilateral upper limbs (principal); E66.9 Obesity, unspecified; F17.200 Nicotine dependence, unspecified, uncomplicated; Z88.1 Allergy status to other antibiotic agents; Z90.49 Acquired absence of other specified parts of digestive tract; Z90.89 Acquired absence of other organs

== ENCOUNTER 2017-05-20 12:12 | Emergency (ER) | payer BC ==
[~2017-05-20] VITALS: Ht 162.6 cm; Wt 96.3 kg
[~2017-05-20 12:12] MED LIST changes: -ATROPINE SULFATE 0.1 MG/ML 5ML SYR IV PRN; -CEFAZOLIN 2000MG IV PUSH 10 ML IV SCH; -EpHEDrine SULFATE INJ 50 MG/ML AMP IV PRN; -FENTANYL CITRATE INJ 50 MCG/1 ML 2 ML VIAL IV PRN; -FENTANYL CITRATE INJ 50 MCG/1 ML 2 ML VIAL ONE; -HYDROCODONE/ACETAMOPHEN 5/325MG TAB PO PRN; -LACTATED RINGER'S 1000ML 1,000 ML IV SCH; -LIDOCAINE HCL 2% 2 ML VIAL (20MG/ML) ONE; -LIDOCAINE HCL 2% LOCAL 20 ML VIAL ONE; -MIDAZOLAM HCL 1 MG/ML 2ML VIAL ONE; -ONDANSETRON INJ 2 MG/ML 2 ML VIAL IV PRN; -ONDANSETRON INJ 2 MG/ML 2 ML VIAL ONE; -PROPOFOL IV EMULSION 10 MG/ML 20 ML VIAL IV ONE; -SODIUM CHLORIDE 0.9% 1000ML 1,000 ML IV SCH
[2017-05-20 12:24] VITALS: TEMP 36.8; Ht 162.6 cm; Wt 96.3 kg
--- NOTE | 2017-05-20 13:04 | DIAGNOSTIC IMAGING REPORT ---
SINGLE VIEW CHEST CLINICAL HISTORY: Atypical chest pain. Dyspnea. FINDINGS: An AP, portable, upright chest radiograph is obtained. No prior studies are available for comparison at the time of dictation. The examination is mildly degraded by portable technique and patient rotation. The cardiomediastinal silhouette is unremarkable. The lungs and pleural spaces are clear. No pneumothorax is seen. The bony thorax is grossly intact. IMPRESSION: No acute cardiopulmonary abnormality. Electronically signed by: Mk Davila M.D. 05/20/2017 1:03 PM Dictated Date/Time: 05/20/2017 1:02 PM
[2017-05-20 13:16] LABS: BASO % 0.3 %; BASO ABS # 0.02 K/uL (0-0.2); EOS % 0.4 %; EOS ABS # 0.03 K/uL (0-0.5); HEMATOCRIT 44.9 % (37-47); HEMOGLOBIN 15.2 g/dL (12.0-16.0); IG# 0.01 K/uL (0.00-0.02); LYMPH % 19.1 %; LYMPH ABS # 1.42 K/uL (1.2-3.4); MEAN CORPUSCULAR HEMOGLOBIN 32.8 pg (25-34); MEAN CORPUSCULAR HGB CONC 33.9 g/dl (32-36); MONO % 8.3 %; MONO ABS # 0.62 K/uL (0.11-0.59); NEUT % 71.8 %; NEUT ABS # 5.35 K/uL (1.4-6.5); PLATELET COUNT 268 K/uL (130-400); RED CELL DISTRIBUTION WIDTH CV 13.1 % (11.5-14.5); RED CELL DISTRIBUTION WIDTH SD 46.5 fL (36.4-46.3); WHITE BLOOD COUNT 7.45 K/uL (4.8-10.8)
[2017-05-20 13:27] LABS: INR 0.9 (0.9-1.1); PTT PATIENT 27.5 SECONDS (21.0-31.0)
[2017-05-20 13:34] LABS: ALBUMIN 4.2 gm/dl (3.4-5.0); ALT/SGPT 16 U/L (12-78); AST/SGOT 10 U/L (15-37); BLOOD UREA NITROGEN 8 mg/dl (7-18); CALCIUM 9.2 mg/dl (8.5-10.1); CARBON DIOXIDE 27 mmol/L (21-32); CREATININE 0.65 mg/dl (0.60-1.20); GLUCOSE 101 mg/dl (70-99); POTASSIUM 3.6 mmol/L (3.5-5.1); SODIUM 137 mmol/L (136-145)
[2017-05-20 13:43] LABS: ALKALINE PHOSPHATASE 75 U/L (45-117); CKMB 0.6 ng/ml (0.5-3.6); TOTAL PROTEIN 7.8 gm/dl (6.4-8.2)
[2017-05-20] MEDS ORDERED: PRD/1 PO (14:11)
[2017-05-20] MEDS ORDERED: MELO15TA4 PO (14:11)
[2017-05-20] MEDS ORDERED: GI COCKTAIL PO STA (14:59)
[2017-05-20] MEDS ORDERED: KETOROLAC TROMETHAMINE 30 MG/ML VIAL IV STA (15:19)
[2017-05-20] MEDS ORDERED: ALBUT/IPRATROP 3MG/0.5MG NEB 3 ML VIAL INH STA (15:19)
[2017-05-20] MEDS ORDERED: ALUMINUM/MAGNESIUM SUSP 30 ML UDC ONE (15:56)
[2017-05-20] MEDS ORDERED: LIDOCAINE HCL 2% VISC SOLN 20 ML UDC ONE (15:56)
[2017-05-20] MEDS ORDERED: ZNTT/150 PO (17:28)
--- NOTE | 2017-05-20 17:29 | EMERGENCY ROOM VISIT NOTE ---
History First contact with patient: 12:29 Chief Complaint: CARDIAC ASSESSMENT Stated Complaint: POSSIBLE AFIB Nursing Triage Summary: PT presents with dizziness, and for past 2 nights "I wake up with my heart pounding and I have really bad heart burn" PT called doctor today, told symptoms, was told to come to ED. PT denies any nausea or vomiting, PT states " I dont really have shortness of breath, I just feel like I have to breath heavy" PT skin color is pale at this time. History of Present Illness The patient is a 47 year old female who presents to the Emergency Room via private vehicle accompanied by with complaints of "possible A. fib". The patient states that for the past 2 nights she has had dizziness, heart palpitations, heart burning, as well as a sensation as though somebody is grabbing her throat". The patient just finished a course of methylprednisolone following inflammation of the carpal tunnel region status post surgery. She rates her overall pain today as a 6/10. She at baseline takes omeprazole for her reflux. She denies any heart problems or history of clot. She notes that her surgery was on April 17. It went well. Lying flat makes the pain worse. Review of Systems A complete 10-point Review of Systems was discussed with the patient, with pertinent positives and negatives listed in the History of Present Illness. All remaining Review of Systems questions can be considered negative unless otherwise specified. Past Medical/Surgical History Medical Problems: (1) Acute bronchitis, unspecified (2) (3) Cellulitis (4) Endometriosis (5) Esophageal reflux (6) Tonsillectomy (7) Unspecified asthma (8) Urinary tract infection Family History Cardiovascular disease Kidney disease Social History Smoking Status: Never Smoker Drug Use: none Marital Status: Housing Status: lives with family Occupation Status: employed Current/Historical Medications Scheduled Gabapentin (Neurontin), 600 MG PO TID Lamotrigine (Lamictal), 150 MG PO BID Meloxicam (Mobic), 15 MG PO DAILY Multivit/Min/Iron/Fol Ac/Pren ( Vitamin), 1 TAB PO DAILY Omeprazole (Prilosec), 20 MG PO QAM Prednisone (Prednisone), 1 TAB PO UD Ranitidine (Zantac), 150 MG PO BID Physical Exam Vital Signs Date Time Temp Pulse Resp B/P (MAP) Pulse Ox O2 Delivery O2 Flow Rate FiO2 05/20/17 17:42 74 18 116/75 98 05/20/17 16:38 80 05/20/17 16:00 74 18 117/83 100 Room Air 05/20/17 13:12 72 16 130/81 96 Room Air 05/20/17 12:40 Room Air 05/20/17 12:36 77 05/20/17 12:24 36.8 90 18 144/92 100 Room Air Physical Exam VITAL SIGNS - Vital signs and nursing notes were reviewed. Stable. GENERAL - 47-year-old female appearing her stated age who is in no acute distress. Communicates well with provider and answers questions appropriately. SKIN - Without rashes. HEAD - NC/AT. EYES -Sclera anicteric. EARS - No deformities of external structures noted on gross examination bilaterally. NOSE - Midline and without cyanosis. No epistaxis or purulent drainage noted. MOUTH/OROPHARYNX - Without perioral cyanosis. LUNGS - Chest wall symmetric without accessory muscle use, intercostals retractions, or central cyanosis. Normal vesicular breath sounds CTA B/L. No wheezes, rales, or rhonchi appreciated. CARDIAC - RRR with S1/S2. No murmur, rubs, or gallops appreciated. ABDOMEN - Abdominal contour normal without pulsations or visible masses. BS normoactive all four quadrants. No tenderness, palpable masses, hepatosplenomegaly, or ascites noted. Medical Decision & Procedures ER Provider Diagnostic Interpretation: SINGLE VIEW CHEST CLINICAL HISTORY: Atypical chest pain. Dyspnea. FINDINGS: An AP, portable, upright chest radiograph is obtained. No prior studies are available for comparison at the time of dictation. The examination is mildly degraded by portable technique and patient rotation. The cardiomediastinal silhouette is unremarkable. The lungs and pleural spaces are clear. No pneumothorax is seen. The bony thorax is grossly intact. IMPRESSION: No acute cardiopulmonary abnormality. Electronically signed by: Mk Davila M.D. 05/20/2017 1:03 PM Dictated Date/Time: 05/20/2017 1:02 PM Laboratory Results 05/20/17 12:40 Red Blood Count 4.63, Mean Corpuscular Volume 97.0, Mean Corpuscular Hemoglobin 32.8, Mean Corpuscular Hemoglobin Concent 33.9, Mean Platelet Volume 10.0, Neutrophils (%) (Auto) 71.8, Lymphocytes (%) (Auto) 19.1, Monocytes (%) (Auto) 8.3, Eosinophils (%) (Auto) 0.4, Basophils (%) (Auto) 0.3, Neutrophils # (Auto) 5.35, Lymphocytes # (Auto) 1.42, Monocytes # (Auto) 0.62, Eosinophils # (Auto) 0.03, Basophils # (Auto) 0.02 05/20/17 12:40 Test 05/20/17 12:40 05/20/17 13:25 05/20/17 16:00 White Blood Count 7.45 K/uL (4.8-10.8) Red Blood Count 4.63 M/uL (4.2-5.4) Hemoglobin 15.2 g/dL (12.0-16.0) Hematocrit 44.9 % (37-47) Mean Corpuscular Volume 97.0 fL (80-100) Mean Corpuscular Hemoglobin 32.8 pg (25-34) Mean Corpuscular Hemoglobin Concent 33.9 g/dl (32-36) Platelet Count 268 K/uL (130-400) Mean Platelet Volume 10.0 fL (7.4-10.4) Neutrophils (%) (Auto) 71.8 % Lymphocytes (%) (Auto) 19.1 % Monocytes (%) (Auto) 8.3 % Eosinophils (%) (Auto) 0.4 % Basophils (%) (Auto) 0.3 % Neutrophils # (Auto) 5.35 K/uL (1.4-6.5) Lymphocytes # (Auto) 1.42 K/uL (1.2-3.4) Monocytes # (Auto) 0.62 K/uL (0.11-0.59) Eosinophils # (Auto) 0.03 K/uL (0-0.5) Basophils # (Auto) 0.02 K/uL (0-0.2) RDW Standard Deviation 46.5 fL (36.4-46.3) RDW Coefficient of Variation 13.1 % (11.5-14.5) Immature Granulocyte % (Auto) 0.1 % Immature Granulocyte # (Auto) 0.01 K/uL (0.00-0.02) Prothrombin Time 9.9 SECONDS (9.0-12.0) Prothromb Time International Ratio 0.9 (0.9-1.1) Activated Partial Thromboplast Time 27.5 SECONDS (21.0-31.0) Partial Thromboplastin Ratio 1.1 D-Dimer < 190 ug/L FEU (0-500) Anion Gap 5.0 mmol/L (3-11) Est Creatinine Clear Calc Drug Dose 121.8 ml/min Estimated GFR () 123.4 Estimated GFR (Non- 106.5 BUN/Creatinine Ratio 11.5 (10-20) Calcium Level 9.2 mg/dl (8.5-10.1) Magnesium Level 2.2 mg/dl (1.8-2.4) Total Bilirubin 0.6 mg/dl (0.2-1) Aspartate Amino Transf (AST/SGOT) 10 U/L (15-37) Alanine Aminotransferase (ALT/SGPT) 16 U/L (12-78) Alkaline Phosphatase 75 U/L (45-117) Total Creatine Kinase 51 U/L (26-192) Creatine Kinase MB 0.6 ng/ml (0.5-3.6) Creatine Kinase MB Ratio 1.2 (0-3.0) C-Reactive Protein < 0.29 mg/dl (0-0.29) Total Protein 7.8 gm/dl (6.4-8.2) Albumin 4.2 gm/dl (3.4-5.0) Globulin 3.6 gm/dl (2.5-4.0) Albumin/Globulin Ratio 1.2 (0.9-2) Thyroid Stimulating Hormone (TSH) 1.440 uIu/ml (0.300-4.500) Urine Color YELLOW Urine Appearance CLEAR (CLEAR) Urine pH 8.5 (4.5-7.5) Urine Specific [place] 1.008 (1.000-1.030) Urine Protein NEG (NEG) Urine Glucose (UA) NEG (NEG) Urine Ketones NEG (NEG) Urine Occult Blood NEG (NEG) Urine Nitrite NEG (NEG) Urine Bilirubin NEG (NEG) Urine Urobilinogen NEG (NEG) Urine Leukocyte Esterase NEG (NEG) Troponin I < 0.015 ng/ml (0-0.045) Medications Administered Medications (Trade) Dose Ordered Sig/Maulik Route Start Time Stop Time Status Last Admin Dose Admin Ketorolac Tromethamine (Toradol Inj) 30 mg NOW STAT IV 05/20/17 15:19 05/20/17 15:21 DC 05/20/17 16:00 30 MG Albuterol/ Ipratropium (Duoneb) 3 ml NOW STAT INH 05/20/17 15:19 05/20/17 15:21 DC 05/20/17 16:03 3 ML Al Hydroxide/Mg Hydroxide (Maalox Susp) 30 ml STK-MED ONCE .ROUTE 05/20/17 15:56 05/20/17 15:57 DC 05/20/17 15:59 30 ML Lidocaine HCl (Viscous Lidocaine 2% Soln) 20 ml STK-MED ONCE .ROUTE 05/20/17 15:56 05/20/17 15:57 DC 05/20/17 15:56 20 ML Medical Decision Patient was seen and evaluated as above. She presents to us today with chest tightness. She is well on exam, nontoxic in appearance and is hemodynamically stable. She has no history of CT or PE. She recently finished a Medrol Dosepak. I suspect she likely is experiencing reflux from this, as well as perhaps other side effects that are causing her presentation here today. Her risk factor for cardiac event is smoking and age. She also has a brother and mother who did have CT at a younger age. Initial troponin is negative. Bedside EKG was performed initially does have some questionable change in the V4 region. This was repeated and found to be normal. I suspect this is likely lead placement on the patient during EKG. Second troponin was performed and was negative. I suspect that given the duration of the patient's symptoms that if this was cardiac in nature the troponin by this point would've been elevated. D-dimer is also negative. Chest x-ray normal. CBC reveals no leukocytosis or anemia. coags are normal. Patient metabolic panel reveals no evidence of kidney or liver failure. TSH normal. Inflammatory is also normal. Urine negative. She was given Toradol for pain here as well as a GI cocktail. She was also given a DuoNeb. This did not provide any relief, however I do suspect that this still to be reflux related secondary to her recent medication. I will add Zantac to her regimen. She is to follow-up in the outpatient setting. Case was discussed with the attending physician. Patient was educated upon management, educated upon worrisome symptoms in which to return, had questions answered prior to discharge, and was discharged home in good condition. In evaluation and treatment of this patient the following differential diagnoses were entertained: CT, PE, GERD, costochondritis, among others. Impression Primary Impression: Chest pain Additional Impression: Esophageal reflux Departure Information Dispostion Home / Self-Care Condition GOOD Prescriptions Ranitidine (Zantac) 150 Mg Tab 150 MG PO BID for 21 Days, #42 TAB Prov: Hollis Cody PA-C 05/20/17 Referrals Jayjay Rodriguez M.D. (PCP) Patient Instructions My [facility] Additional Instructions You were seen in the emergency Department for heart palpitations, and discomfort in the chest. I suspect are most likely experiencing a side effect of the steroid that you were prescribed previously. This time I recommend foods low and acid. I also recommend adding Zantac to your medication regimen. This is in addition to your omeprazole. Zantac is 1 tablet every 12 hours. This is uatp-xot-xddysac but in the event that her insurance will cover it I also sent a prescription to her pharmacy. Please call your family doctor to schedule follow-up. Please return with any new/concerning symptoms. Problem Qualifiers
[2017-05-20 17:42] VITALS: BP 116/75; PULSE 74; O2SAT 98
== END 2017-05-20 17:43 | disposition home or self-care (01) ==
LOC: C.EDB 12:14 → C.EDC 17:43
DX: R07.9 Chest pain, unspecified (principal); K21.9 Gastro-esophageal reflux disease without esophagitis; J45.909 Unspecified asthma, uncomplicated; Z86.19 Personal history of other infectious and parasitic diseases; Z87.440 Personal history of urinary (tract) infections; Z79.899 Other long term (current) drug therapy; Z82.49 Family history of ischemic heart disease and other diseases of the circulatory system; Z84.1 Family history of disorders of kidney and ureter

== ENCOUNTER 2018-10-30 05:21 | Observation (INO) ==
--- NOTE | 2018-10-20 14:52 | Anesthesiology Consultation ---
Date of Service October 20, 2018 Assessment & Plan (1) Encounter for pre-operative examination: Chart Review Chart Review: Acceptable Risk for Surgery and Patient seen in Pre Admission Testing Consults Requested none Teaching & Discussion Pre-Anesthesia Teaching/Discussion Notes: Instructed NPO after midnight before surgery, except medications with 15 cc of water. Medication instructions provided according to the PAT guidelines. History Surgery Operation Date: 10/30/18 07:00 Proposed Procedures p Total Laparoscopic Hysterectomy, Cystoscopy, - Riley Ortiz MD s Possible Laparoscopic Vaginal Hysterectomy, Possible Laparotmy - Riley Ortiz MD Height/Weight Height: 5 ft 3 in Weight: 84.9 kg Allergies Allergy/AdvReac Type Severity Reaction Status Date / Time doxycycline Allergy Severe HIVES Verified 05/20/17 14:11 telithromycin Allergy Severe HIVES Verified 05/20/17 14:11 adhesive Allergy Intermediate SKIN WELTS Verified 05/20/17 14:11 Medications Home Medications Medication Instructions Recorded Confirmed Last Taken bupropion HCl [Wellbutrin XL] 300 mg PO QAM 10/15/18 10/15/18 Unknown etonogestrel [Nexplanon] 68 mg SUBDERMAL UD 10/15/18 10/15/18 Unknown gabapentin 600 mg PO BID 10/15/18 10/15/18 Unknown lamotrigine [Lamictal] 150 mg PO BID 10/15/18 10/15/18 Unknown multivitamin 1 tab PO DAILY 10/15/18 10/15/18 Unknown omeprazole 20 mg PO BID 10/15/18 10/15/18 Unknown ranitidine HCl 300 mg PO HS 10/15/18 10/15/18 Unknown Past Medical History Medical History Anxiety Bipolar 2 disorder GERD (gastroesophageal reflux disease) Hearing deficit Exercise / Class Metabolic Activity II 4-5 Yardwork/Stairs/Walk up hill (Works at [employer], so always on her feet. Walks her dogs daily. Working on remodeling her house. ) Past Family History Family History Grandfather Family history of diabetes mellitus Past Surgical History Surgical History History of bilateral carpal tunnel release 04/2017 History of section History of cholecystectomy LAP History of colonoscopy History of dilatation and curettage UTERINE THERMAL ABLATION History of tonsillectomy with UPPP 02/15/11 - MAC #3, ETT #7.5 with cricoid pressure, Grade 1 View Past Anesthesia History No Hx of Anesthesia Complications and No Family Hx of Anesthesia Complications History of PONV No Hx of PONV and Hx of Motion Sickness (Only if riding in the back of the car) Social History Smoking Status: Current every day smoker tobacco type: cigarettes Smoking cigarettes per day: 1/2 ppd x 26 years Do You Dip or Chew Tobacco: No Hx Alcohol Use: No Hx Substance Use: No substance use type: does not use Review of Systems Patient denies chest pain, shortness of breath, dyspnea on exertion, cough, wheezing, palpitations. +Joint Pain (Shoulders, low back, knees) +Acid Reflux (controlled with current medications) Physical Exam Vital Signs BP: 115/76 P: 83 R: 16 T: 98.3 SPO2: 97% on RA ENMT Thyromental Distance: > or= 3.5 Finger Breadths (3.5) Mallampati Class: II Mouth / Teeth: 1. UPPP Neck normal visual inspection and trachea midline; neck extension not limited Respiratory normal respiratory effort Auscultation: lungs clear to auscultation bilaterally Cardiovascular Rate/Rhythm: regular rate and regular rhythm Heart Sounds: no murmur Vessels: no carotid bruit Neurologic moves all extremities Psychiatric Orientation: alert and oriented x 3 Testing Laboratory Results 10/20/18 15:17 10/20/18 15:17
--- NOTE | 2018-10-20 14:55 | PAT Medication Instructions ---
Medication Instructions Date of Service October 20, 2018 Home Medications bupropion HCl [Wellbutrin XL] 300 mg PO QAM etonogestrel [Nexplanon] 68 mg SUBDERMAL UD gabapentin 600 mg PO BID lamotrigine [Lamictal] 150 mg PO BID multivitamin 1 tab PO DAILY omeprazole 20 mg PO BID ranitidine HCl 300 mg PO HS Continue as directed etonogestrel [Nexplanon] 68 mg SUBDERMAL UD DO NOT take the morning of surgery multivitamin 1 tab PO DAILY Take morning of surgery With a small sip of water, OTHERWISE NOTHING TO EAT OR DRINK AFTER MIDNIGHT: bupropion HCl [Wellbutrin XL] 300 mg PO QAM gabapentin 600 mg PO BID lamotrigine [Lamictal] 150 mg PO BID omeprazole 20 mg PO BID Take evening before surgery gabapentin 600 mg PO BID lamotrigine [Lamictal] 150 mg PO BID omeprazole 20 mg PO BID ranitidine HCl 300 mg PO HS Other Notes If you have any questions please call us at [phone] or [phone] or [phone] or [phone]
[2018-10-20 16:08] LABS: Basophils # (auto) 0.02 K/uL (0-0.2); Basophils % (auto) 0.4 %; Eosinophils # (auto) 0.06 K/uL (0-0.5); Eosinophils % (auto) 1.2 %; Hematocrit (blood only) 40.5 % (37-47); Hemoglobin 13.3 g/dL (12.0-16.0); Immature Granulocytes # (auto) 0.01 K/uL (0.00-0.02); Immature Granulocytes % (auto) 0.2 %; Lymphocytes # (auto) 1.54 K/uL (1.2-3.4); Lymphocytes % (auto) 29.6 %; Mean Corpuscular Hgb Conc 32.8 g/dL (32-36); Mean Corpuscular Volume 99.3 fL (80-100); Mean Platelet Volume 9.9 fL (7.4-10.4); Monocytes # (auto) 0.63 K/uL (0.11-0.59); Monocytes % (auto) 12.1 %; Neutrophils # (auto) 2.94 K/uL (1.4-6.5); Neutrophils % (auto) 56.5 %; Platelet Count 224 K/uL (130-400); RDW Coefficient of Variation 13.2 % (11.5-14.5); RDW Standard Deviation 47.9 fL (36.4-46.3); Red Blood Count 4.08 M/uL (4.2-5.4)
[2018-10-20 16:15] LABS: Albumin Level 3.9 gm/dl (3.4-5.0); BUN Creatinine Ratio 12.2 (10-20); Calcium 8.6 mg/dl (8.5-10.1); Creatinine Clr Calc Pharmacy 117.7 ml/min; Est GFR (African American) 125.1; Potassium 3.4 mmol/L (3.5-5.1)
[2018-10-20 16:17] LABS: Albumin Globulin Ratio 1.3 (0.9-2); Bilirubin,Total 0.7 mg/dl (0.2-1); Total Protein 6.9 gm/dl (6.4-8.2)
[2018-10-30] MEDS ORDERED: LR 60ML/HR IV SCH (06:00)
[2018-10-30] MEDS ORDERED: LR 15ML/HR IV SCH (06:00)
[2018-10-30] MEDS ORDERED: CEFAZOLIN 2000MG 2,000 MG/15 ML SYR IV SCH (06:00)
[2018-10-30] MEDS ORDERED: METHYLENE BLUE 0.5% 10 ML VIAL ONE (06:38)
[2018-10-30] MEDS ORDERED: LIDOCAINE HCL 1% 20 ML VIAL ONE (06:38)
[2018-10-30] MEDS ORDERED: ATROPINE SULFATE 0.1 MG/ML 10ML SYR IV PRN (06:46)
[2018-10-30] MEDS ORDERED: ePHEDrine sulfate 50 MG/ML AMP IV PRN (06:46)
[2018-10-30] MEDS ORDERED: MIDAZOLAM HCL 1 MG/ML 2ML VIAL ONE (06:46)
[2018-10-30] MEDS ORDERED: ONDANSETRON INJ 2 MG/ML 2 ML VIAL IV PRN ×2 (06:46→10:09)
[2018-10-30] MEDS ORDERED: fentaNYL citrate 100 MCG/2 ML VIAL ONE (06:46)
[2018-10-30] MEDS ORDERED: PROMETHAZINE HCL 6.25 MG in SODIUM CHLORIDE 0.9% 50 ML IV PRN (06:46)
[2018-10-30] MEDS ORDERED: HYDROmorphone INJ 2 MG/ML SYR/VIAL IV PRN (06:46)
--- NOTE | 2018-10-30 06:50 | History & Physical Bridge Note ---
Date of Service October 30, 2018 History & Physical Bridge Note I have examined the patient, reviewed the History & Physical and in the interval since the performance of the History & Physical I have noted the following changes of clinical significance: no changes noted
[2018-10-30] MEDS ORDERED: LIDOCAINE HCL 2% 2 ML VIAL/AMP(20MG/ML) INFIL ONE (07:23)
[2018-10-30] MEDS ORDERED: PROPOFOL IV EMULSION 10 MG/ML 20 ML VIAL IV ONE (07:23)
[2018-10-30] MEDS ORDERED: ONDANSETRON INJ 2 MG/ML 2 ML VIAL ONE ×2 (07:23→09:31)
[2018-10-30] MEDS ORDERED: ROCURONIUM BROMIDE 10 MG/ML 5 ML VIAL ONE (07:23)
[2018-10-30] MEDS ORDERED: DEXAMETHASONE SOD INJ 4 MG/ML VIAL ONE (07:23)
[2018-10-30] MEDS ORDERED: HYDROmorphone INJ 2 MG/ML SYR/VIAL ONE (07:26)
[2018-10-30] MEDS ORDERED: ACETAMINOPHEN 1000 MG/100 ML IV IV ONE (07:26)
[2018-10-30] MEDS ORDERED: ePHEDrine sulfate 50 MG/ML SYR ONE (07:48)
[2018-10-30] MEDS ORDERED: NEOSTIGMINE METHYLSULFATE 5 MG/5 ML SYR ONE (09:31)
[2018-10-30] MEDS ORDERED: GLYCOPYRROLATE 0.2 MG/ML VIAL ONE (09:31)
[2018-10-30] MEDS ORDERED: TISSEEL FIBRIN SEALANT 10ML TOP ONE (09:48)
[2018-10-30] MEDS ORDERED: ACETAMINOPHEN 325 MG TAB PO PRN (10:09)
[2018-10-30] MEDS ORDERED: ZOLPIDEM TARTRATE 5 MG TAB PO PRN (10:09)
[2018-10-30] MEDS ORDERED: IBUPROFEN 600 MG TAB PO PRN (10:09)
[2018-10-30] MEDS ORDERED: OXYCODONE/ACETAMINOPHEN 5mg/325mg TAB PO PRN (10:09)
[2018-10-30] MEDS ORDERED: PROMETHAZINE HCL 25 MG in SODIUM CHLORIDE 0.9% 50 ML IV PRN (10:09)
[2018-10-30] MEDS ORDERED: BISACODYL 10 MG SUPP PR PRN (10:09)
[2018-10-30] MEDS ORDERED: MAGNESIUM HYDROXIDE SUSP 30 ML UDC PO PRN (10:09)
[2018-10-30] MEDS ORDERED: KETOROLAC 30 MG/ML VIAL IV PRN (10:09)
[2018-10-30] MEDS ORDERED: PROMETHAZINE HCL 12.5 MG in SODIUM CHLORIDE 0.9% 50 ML IV PRN (10:09)
[2018-10-30] MEDS: fentaNYL citrate 100 MCG/2 ML VIAL IV PRN ×2 (10:14→10:25)
[2018-10-30] MEDS ORDERED: LACTATED RINGER'S 1,000 ML IV SCH (10:15)
--- NOTE | 2018-10-30 10:46 | Anesthesiology Progress Note ---
Date of Service October 30, 2018 Anesthesia Post Procedure Vital Signs Vital Signs: Temp Pulse Pulse Resp BP Pulse Ox 10/30/18 10:45 79 16 130/56 L 98 10/30/18 10:35 86 17 120/66 100 10/30/18 10:25 94 H 20 114/75 100 10/30/18 10:15 90 15 120/59 L 100 10/30/18 10:05 83 16 116/55 L 100 10/30/18 09:58 36.5 C 83 16 97/59 L 100 10/30/18 05:47 37.1 C 80 18 125/82 98 Pain Intensity Medial Abdomen: Pain Intensity: 5 Transfer of Care Handoff Completed per policy Notes Mental Status: alert / awake / arousable Patient Amnestic to Procedure: Yes Nausea / Vomiting: adequately controlled Pain: adequately controlled Airway Patency, RR, SpO2: stable & adequate BP & HR: stable & adequate Hydration State: stable & adequate Anesthetic Complications: no major complications apparent
[2018-10-30] MEDS: OXYCODONE/ACETAMINOPHEN 5mg/325mg TAB PO PRN ×2 (17:39→23:58)
[2018-10-30 20:08] LABS: Hematocrit (blood only) 37.2 % (37-47); Hemoglobin 12.5 g/dL (12.0-16.0)
[2018-10-30] MEDS: DOCUSATE SODIUM 100 MG CAP PO SCH (20:44)
[2018-10-30] MEDS ORDERED: lamoTRIgine 100 MG TAB PO SCH (21:15)
[2018-10-30] MEDS ORDERED: COUGH DROP (SUGAR FREE) LOZ 24 LOZ/1 BOX BUCCAL ONE (23:52)
[2018-10-31 07:04] LABS: Basophils # (auto) 0.02 K/uL (0-0.2); Basophils % (auto) 0.3 %; Eosinophils # (auto) 0.04 K/uL (0-0.5); Eosinophils % (auto) 0.6 %; Hematocrit (blood only) 37.2 % (37-47); Hemoglobin 12.2 g/dL (12.0-16.0); Immature Granulocytes # (auto) 0.02 K/uL (0.00-0.02); Immature Granulocytes % (auto) 0.3 %; Lymphocytes # (auto) 1.44 K/uL (1.2-3.4); Lymphocytes % (auto) 23.2 %; Mean Corpuscular Hgb Conc 32.8 g/dL (32-36); Mean Corpuscular Volume 98.2 fL (80-100); Monocytes # (auto) 0.92 K/uL (0.11-0.59); Monocytes % (auto) 14.8 %; Neutrophils # (auto) 3.78 K/uL (1.4-6.5); Neutrophils % (auto) 60.8 %; Platelet Count 187 K/uL (130-400); RDW Coefficient of Variation 13.1 % (11.5-14.5); RDW Standard Deviation 46.8 fL (36.4-46.3); Red Blood Count 3.79 M/uL (4.2-5.4); White Blood Count 6.22 K/uL (4.8-10.8)
[2018-10-31 07:28] LABS: BUN Creatinine Ratio 9.8 (10-20); Calcium 8.6 mg/dl (8.5-10.1); Creatinine Clr Calc Pharmacy 142.3 ml/min; Est GFR (African American) 133.6; Est GFR (Non-African American) 115.3; Potassium 3.9 mmol/L (3.5-5.1)
--- NOTE | 2018-10-31 08:00 | Gynecologic Progress Note ---
Date of Service October 31, 2018 Assessment & Plan (1) Postop check: postop day 31 s/p TLH Pt doing well no complaints d/c home with instructions Review of Systems Review of Systems: All systems reviewed & are unremarkable except as noted in HPI & below Physical Exam Constitutional: WD/WN, vitals as above Eyes: PERRL, conjunctivae normal, anicteric sclerae ENMT: external ear and nose normal, oropharynx normal Neck: trachea midline, no thyromegaly Respiratory: normal respiratory effort, lungs clear to auscultation Cardiovascular: RRR, no murmur, no edema Chest (Breasts): normal inspection/palpation of breasts Gastrointestinal (Abdomen): normal bowel sounds, soft, nontender, no hepatosplenomegaly Musculoskeletal: no cyanosis or clubbing, extremities motor strength 5/5 Skin: + incision (Incision clean,dry and intact) Neurologic: patellar DTR's 2+ bilat, sensation intact Psychiatric: A+Ox3, euthymic affect Genitourinary: no vaginal lesions, no adnexal mass Lymphatic: no cervical or axillary lymphadenopathy Results & Data Vital Signs (Past 12 Hours) Vital Signs Temp Pulse Pulse Resp BP Pulse Ox 10/31/18 04:30 36.6 C 69 16 107/74 95 10/30/18 23:50 36.6 C 68 18 125/77 98
[2018-10-31] MEDS: PANTOprazole 40 MG TAB PO SCH ×2 (08:17→08:18)
[2018-10-31] MEDS: GABAPENTIN 600 MG TAB PO SCH ×2 (08:17→08:18)
[2018-10-31] MEDS: lamoTRIgine 100 MG TAB PO SCH ×2 (08:17→08:18)
[2018-10-31] MEDS: DOCUSATE SODIUM 100 MG CAP PO SCH (08:19)
[2018-10-31] MEDS: OXYCODONE/ACETAMINOPHEN 5mg/325mg TAB PO PRN (08:19)
[2018-10-31] MEDS ORDERED: BuPROPion XL 300 MG TABCR PO SCH (09:00)
--- NOTE | 2018-10-31 11:39 | Discharge Summary ---
HISTORY OF PRESENT ILLNESS AND HOSPITAL COURSE: Patient is a 48-year-old who underwent laparoscopic hysterectomy, bilateral salpingectomy. For abnormal uterine bleeding, patient had history of endometrial ablation 2 years ago and adenomyosis. Surgery was unremarkable. Details of surgery is in the surgical record. The patient did well postoperatively and met all milestones. She was observed overnight and today is being discharged home in stable condition. PAST MEDICAL HISTORY: Abnormal uterine bleeding, adenomyosis, anxiety, depression, GERD, bipolar. PAST SURGICAL HISTORY: History of tonsillectomy, cholecystectomy, colonoscopy, and section, as well as D and C and endometrial ablation. FAMILY HISTORY: Noncontributory. SOCIAL HISTORY: The patient denies tobacco, drug or alcohol use. PHYSICAL EXAMINATION: GENERAL: Well-developed, well-nourished white female in no acute distress. VITAL SIGNS: As follows, blood pressure 107/74, pulse 69, respirations 16, temperature 36.6. HEART: S1, S2, regular rhythm and rate. LUNGS: Clear to auscultation bilaterally. ABDOMEN: Nontender, nondistended. Incision sites are clean, dry and intact. EXTREMITIES: No cyanosis, clubbing or edema. PELVIC: She has minimal bleeding. LABORATORY DATA: Hemoglobin 12.2, hematocrit 37.2. CONDITION ON DISCHARGE: Stable. OPERATIONS: Total laparoscopic hysterectomy with bilateral salpingectomy and cystoscopy. DISCHARGE DIAGNOSIS: Postop stable. PLAN ON DISCHARGE: The patient is discharged home including instructions regarding activity, diet, followup appointments, and medication.
--- NOTE | 2018-11-02 07:32 | Operative Report ---
DATE OF OPERATION: 10/30/2018 INDICATION FOR SURGERY: This is a 48-year-old with abnormal uterine bleeding, status post endometrial ablation 2 years ago and adenomyosis. PREOPERATIVE DIAGNOSES: 1. Abnormal uterine bleeding. 2. History of endometrial ablation. 3. Adenomyosis. POSTOPERATIVE DIAGNOSES: 1. Abnormal uterine bleeding. 2. History of endometrial ablation. 3. Adenomyosis. SURGEON: Riley Ortiz MD REFRIGERATION SUPERVISOR: Shelly Tavera MD PROCEDURES: 1. Total laparoscopic hysterectomy. 2. Bilateral salpingectomy. 3. Cystoscopy. PATHOLOGY: Uterus with cervix and both fallopian tubes. ESTIMATED BLOOD LOSS: 10 mL. INTRAVENOUS FLUIDS: 1400 mL. URINE OUTPUT: 500 mL clear urine at the end of the procedure. DRAINS: None. COMPLICATIONS: None. DISPOSITION: Stable in the recovery room. DESCRIPTION OF PROCEDURE: The patient was taken to the operating room where she was prepped and draped in normal sterile fashion. Timeout was called. Quiroz catheter was placed in the bladder. A weighted speculum was placed in the vagina. Araujo retractor was used to retract the anterior part of the cervix. Uterine manipulator was placed in the uterus to help manipulate the uterus during laparoscopy. Uterus sounded to 7 cm. Attention was paid to the abdominal part of the procedure where an infraumbilical incision was made and carried down to the fascia. A 5 mm guided trocar was placed in the abdomen at a 45-degree angle while tenting up the abdomen. This was done under direct visualization. Once inside the abdomen, the laparoscope was repositioned. Abdomen was insufflated with CO2 gas. Findings of the abdomen showed 8-10 weeks' size uterus. There were several implants of endometriosis in the cul-de-sac and on the uterus. Both ovaries appeared grossly normal. There were no significant adhesions in the pelvis. Three more accessory ports were placed in the abdomen under direct visualization. The left fallopian tube was identified and followed to the fimbriated end. Salpingectomy was performed with Harmonic scalpel. The same procedure was performed on the contralateral side. The round ligaments were identified and fulgurated. Infundibular pelvis on both sides were also fulgurated. There was good hemostasis there. The bladder flap was created and carefully dissected. The uterines were identified and fulgurated. There was good hemostasis at this point as well. The dissection was carried down to the broad ligament down to the cardinal ligaments. Once the uterine manipulator could be palpated and the vesicouterine peritoneum was carefully dissected off the lower segment of the uterus. A colpotomy was performed in a circumferential manner. The uterus with cervix and tube was removed through the vagina. The vaginal cuff was closed using the EndoStitch. There was good hemostasis. A copious amount of irrigation was performed. The cystoscopy was performed. There were no lesions or sutures seen in the bladder. Both urethral orifices were seen and urine was seen jetting out of both orifices. The abdominal incisions were closed. One of the left abdominal incisions was a 10 mm incision. This was closed under direct visualization with the Franko-Marilu. The rest of 5 mm abdominal incisions were closed in 2 layers as well. The fascia was closed then followed by skin. All instruments were removed from the abdomen and the vagina and accounted for x2. The patient is sent to recovery in a stable condition. I attest to the content of the Intraoperative Record and any orders documented therein. Any exception s are noted below.
== END 2018-10-31 10:00 | disposition home or self-care (01) ==
LOC: ASU 05:21 → 4N 05:21